=== PATIENT | female | born 1960 | race Caucasian/White ===

== ENCOUNTER 2017-10-09 04:18 | Inpatient (IN) | payer OTHER ==
[2017-10-09] MEDS: ALBUTEROL/IPRATROPIUM (NEB) 3 ML AMP HHN ×3 (05:00→14:24)
[2017-10-09] MEDS: SOD CHLORIDE 0.9% 1,000 ML IV (05:50)
[2017-10-09] MEDS: PANTOPRAZOLE 40 MG INJ IV (05:50)
[2017-10-09] MEDS: AZITHROMYCIN 500 MG in SOD CHLORIDE 0.9% 250 ML IVPB (07:59)
[2017-10-09 08:13] LABS: ADD MAN DIFF? NO
[2017-10-09 08:17] LABS: BASOPHIL # 0.1 10^3/ul (0.0-0.1); BASOPHILS % 0.2 % (0.0-2.0); EOSINOPHILS # 0.3 10^3/ul (0.0-0.5); EOSINOPHILS % 1.4 % (0.0-7.0); HEMATOCRIT 24.6 % (37.0-47.0); HEMOGLOBIN 8.2 g/dl (12.0-16.0); LYMPHOCYTES # 1.1 10^3/ul (0.8-2.9); LYMPHOCYTES % 4.9 % (15.0-51.0); MEAN CORPUSCULAR HEMOGLOBIN 28.5 pg (29.0-33.0); MEAN CORPUSCULAR HGB CONC 33.3 g/dl (32.0-37.0); MEAN CORPUSCULAR VOLUME 85.4 fl (82.0-101.0); MEAN PLATELET VOLUME 9.5 fl (7.4-10.4); MONOCYTE # 0.8 10^3/ul (0.3-0.9); MONOCYTES % 3.6 % (0.0-11.0); NEUTROPHIL # 19.8 10^3/ul (1.6-7.5); NEUTROPHILS % 87.4 % (39.0-77.0); NUCLEATED RED BLOOD CELLS% 0.1 /100WBC (0.0-0.0); PLATELET COUNT 511 10^3/UL (140-415); RED BLOOD COUNT 2.88 10^6/ul (4.20-5.40); RED CELL DISTRIBUTION WIDTH 14.9 % (11.5-14.5)
[2017-10-09 08:17] LABS: WHITE BLOOD COUNT 22.6 10^3/ul (4.8-10.8)
[2017-10-09 08:39] LABS: ALANINE AMINOTRANSFERASE 56 IU/L (13-69); ALBUMIN 2.6 g/dl (3.3-4.9); ALBUMIN/GLOBULIN RATIO 0.66; ALKALINE PHOSPHATASE 288 IU/L (42-121); ANION GAP 14 (8-16); ASPARTATE AMINO TRANSFERASE 71 IU/L (15-46); BLOOD UREA NITROGEN 11 mg/dl (7-20); CALCIUM 7.9 mg/dl (8.4-10.2); CARBON DIOXIDE 24 mmol/L (21-31); CHLORIDE 104 mmol/L (97-110); CREATININE 0.52 mg/dl (0.44-1.00); GLUCOSE 104 mg/dl (70-220); POTASSIUM 3.6 mmol/L (3.5-5.1); SODIUM 138 mmol/L (135-144); TOTAL PROTEIN 6.5 g/dl (6.1-8.1)
[2017-10-09] MEDS ORDERED: LORAZEPAM 0.5 MG TAB PO (09:00)
[2017-10-09] MEDS: ACETAMINOPHEN 325 MG TAB PO ×3 (09:08→20:05)
[2017-10-09] MEDS: ONDANSETRON 4 MG INJ IV (09:08)
[2017-10-09] MEDS: SOD FERRIC GLUC COMPLX 125 MG in SOD CHLORIDE 0.9% 100 ML IVPB (12:42)
[2017-10-09] MEDS: FUROSEMIDE 40 MG INJ IV (18:57)
[2017-10-09] MEDS: LEVALBUTEROL (NEB) 1.25 MG/0.5 ML AMP HHN (19:39)
[2017-10-09] MEDS: IBUPROFEN 600 MG TAB PO (23:18)
[2017-10-10] MEDS: LEVALBUTEROL (NEB) 1.25 MG/0.5 ML AMP HHN ×4 (02:27→19:55)
[2017-10-10] MEDS: SOD CHLORIDE 0.9% 1,000 ML IV ×2 (05:00→23:00)
[2017-10-10] MEDS: PANTOPRAZOLE 40 MG INJ IV (05:26)
[2017-10-10] MEDS: CEFTRIAXONE 1 GM/50 ML (PMX) 50 ML IVPB (07:54)
[2017-10-10] MEDS: IBUPROFEN 600 MG TAB PO (07:54)
[2017-10-10] MEDS: AZITHROMYCIN 500 MG in SOD CHLORIDE 0.9% 250 ML IVPB (07:55)
[2017-10-10 08:58] LABS: ADD MAN DIFF? NO
[2017-10-10 09:05] LABS: ABNORMAL IP MESSAGE 1; BASOPHIL # 0.1 10^3/ul (0.0-0.1); BASOPHILS % 0.2 % (0.0-2.0); EOSINOPHILS # 0.3 10^3/ul (0.0-0.5); EOSINOPHILS % 1.1 % (0.0-7.0); HEMATOCRIT 23.2 % (37.0-47.0); HEMOGLOBIN 8.1 g/dl (12.0-16.0); LYMPHOCYTES % 3.9 % (15.0-51.0); MEAN CORPUSCULAR HEMOGLOBIN 28.8 pg (29.0-33.0); MEAN CORPUSCULAR HGB CONC 34.9 g/dl (32.0-37.0); MEAN CORPUSCULAR VOLUME 82.6 fl (82.0-101.0); MEAN PLATELET VOLUME 9.6 fl (7.4-10.4); MONOCYTE # 0.7 10^3/ul (0.3-0.9); MONOCYTES % 2.7 % (0.0-11.0); NEUTROPHIL # 22.8 10^3/ul (1.6-7.5); PLATELET COUNT 506 10^3/UL (140-415); RED BLOOD COUNT 2.81 10^6/ul (4.20-5.40); RED CELL DISTRIBUTION WIDTH 14.6 % (11.5-14.5)
[2017-10-10 09:05] LABS: WHITE BLOOD COUNT 25.3 10^3/ul (4.8-10.8)
[2017-10-10 09:07] LABS: POSITIVE DIFF @See below
[2017-10-10 09:29] LABS: ALANINE AMINOTRANSFERASE 45 IU/L (13-69); ALBUMIN 2.6 g/dl (3.3-4.9); ALKALINE PHOSPHATASE 256 IU/L (42-121); ANION GAP 17 (8-16); ASPARTATE AMINO TRANSFERASE 63 IU/L (15-46); BILIRUBIN,INDIRECT 0.1 mg/dl (0-1.1); BILIRUBIN,TOTAL 0.1 mg/dl (0.2-1.3); BLOOD UREA NITROGEN 8 mg/dl (7-20); CARBON DIOXIDE 26 mmol/L (21-31); CHLORIDE 101 mmol/L (97-110); CREATININE 0.57 mg/dl (0.44-1.00); GLUCOSE 96 mg/dl (70-220); SODIUM 141 mmol/L (135-144); TOTAL PROTEIN 6.3 g/dl (6.1-8.1)
[2017-10-10 09:42] LABS: LACTIC ACID 1.2 mmol/L (0.5-2.0)
[2017-10-10 09:47] LABS: HEMOGLOBIN A1C 6.2 % (0-5.9)
[2017-10-10 10:08] LABS: POTASSIUM 2.9 mmol/L (3.5-5.1)
[2017-10-10] MEDS: POTASSIUM CHLORIDE 20 MEQ POWDER FOR ORAL SOLN PO (11:18)
[2017-10-10] MEDS: SOD FERRIC GLUC COMPLX 125 MG in SOD CHLORIDE 0.9% 100 ML IVPB (12:51)
[2017-10-10 14:55] LABS: RHEUMATOID FACTOR NEGATIVE (NEGATIVE)
[2017-10-10 15:33] LABS: ERYTHROCYTE SEDIMENTATION RATE 76 mm/Hr (0-30)
[2017-10-10] MEDS: COLCHICINE 0.6 MG TAB PO ×2 (15:38→20:56)
[2017-10-10] MEDS: NAPROXEN 500 MG TAB PO ×2 (15:39→20:56)
[2017-10-10] MEDS: ACETAMINOPHEN 325 MG TAB PO (16:18)
[2017-10-10 17:49] LABS: INR 1.21; PROTIME 15.5 Sec (11.9-14.9); PT RATIO 1.2
[2017-10-10 18:08] LABS: TROPONIN-I < 0.012 ng/ml (0.00-0.12)
[2017-10-10] MEDS: CEFEPIME 1GM/50 ML (PMX) 50 ML IVPB (20:56)
[2017-10-10] MEDS: SOD CHLORIDE 0.9% 250 ML IV (22:11)
[2017-10-11] MEDS: SOD CHLORIDE 0.9% 250 ML IV (00:39)
[2017-10-11 01:22] LABS: TROPONIN-I < 0.012 ng/ml (0.00-0.12)
[2017-10-11] MEDS: LEVALBUTEROL (NEB) 1.25 MG/0.5 ML AMP HHN ×4 (02:00→20:17)
[2017-10-11] MEDS: SOD CHLORIDE 0.9% 1,000 ML IV (04:46)
[2017-10-11 04:52] LABS: ADD MAN DIFF? NO
[2017-10-11 05:12] LABS: BASOPHIL # 0.1 10^3/ul (0.0-0.1); BASOPHILS % 0.2 % (0.0-2.0); EOSINOPHILS # 0.9 10^3/ul (0.0-0.5); HEMOGLOBIN 7.8 g/dl (12.0-16.0); LYMPHOCYTES # 1.2 10^3/ul (0.8-2.9); LYMPHOCYTES % 5.7 % (15.0-51.0); MEAN CORPUSCULAR HEMOGLOBIN 28.4 pg (29.0-33.0); MEAN CORPUSCULAR HGB CONC 33.9 g/dl (32.0-37.0); MEAN CORPUSCULAR VOLUME 83.6 fl (82.0-101.0); MONOCYTE # 0.4 10^3/ul (0.3-0.9); MONOCYTES % 1.9 % (0.0-11.0); NEUTROPHIL # 18.6 10^3/ul (1.6-7.5); NEUTROPHILS % 86.2 % (39.0-77.0); NUCLEATED RED BLOOD CELLS% 0.1 /100WBC (0.0-0.0); PLATELET COUNT 464 10^3/UL (140-415); RED BLOOD COUNT 2.75 10^6/ul (4.20-5.40); RED CELL DISTRIBUTION WIDTH 15.1 % (11.5-14.5)
[2017-10-11 05:12] LABS: WHITE BLOOD COUNT 21.6 10^3/ul (4.8-10.8)
[2017-10-11] MEDS: PANTOPRAZOLE 40 MG INJ IV (05:35)
[2017-10-11 05:58] LABS: TROPONIN-I < 0.012 ng/ml (0.00-0.12)
[2017-10-11 07:31] LABS: ANION GAP 12 (8-16); BLOOD UREA NITROGEN 12 mg/dl (7-20); CARBON DIOXIDE 25 mmol/L (21-31); CHLORIDE 107 mmol/L (97-110); CREATININE 0.57 mg/dl (0.44-1.00); GLUCOSE 103 mg/dl (70-220); POTASSIUM 3.1 mmol/L (3.5-5.1); SODIUM 141 mmol/L (135-144)
[2017-10-11 08:17] LABS: INR 1.29; PROTIME 16.3 Sec (11.9-14.9); PT RATIO 1.3
[2017-10-11 08:19] LABS: PARTIAL THROMBOPLASTIN TIME 45.3 Sec (25.0-35.0)
[2017-10-11] MEDS: NAPROXEN 500 MG TAB PO ×2 (08:23→21:07)
[2017-10-11] MEDS: CEFEPIME 1GM/50 ML (PMX) 50 ML IVPB ×2 (08:23→21:07)
[2017-10-11] MEDS: COLCHICINE 0.6 MG TAB PO ×2 (08:23→21:00)
[2017-10-11 09:03] LABS: MAGNESIUM 2.1 mg/dl (1.7-2.5)
[2017-10-11] MEDS: AZITHROMYCIN 500 MG in SOD CHLORIDE 0.9% 250 ML IVPB (09:49)
[2017-10-11] MEDS: LIDOCAINE 1% (MPF) 5 ML VIAL SC (11:09)
[2017-10-11] MEDS: SOD FERRIC GLUC COMPLX 125 MG in SOD CHLORIDE 0.9% 100 ML IVPB (12:02)
[2017-10-11] MEDS: POTASSIUM CHLORIDE 20 MEQ POWDER FOR ORAL SOLN PO (12:03)
[2017-10-11 14:32] LABS: TROPONIN-I < 0.012 ng/ml (0.00-0.12)
[2017-10-11] MEDS: POTASSIUM CHLORIDE (SR) 20 MEQ TAB PO (16:46)
[2017-10-11 17:07] LABS: IMMEDIATE SPIN CROSSMATCH 1 5
[2017-10-11 17:18] LABS: COMPLEMENT C3 151 mg/dl (88-165); COMPLEMENT C4 18 mg/dl (14-44)
[2017-10-11] MEDS: IBUPROFEN 600 MG TAB PO ×2 (17:42→21:07)
[2017-10-11] MEDS: MAGNESIUM CHLORIDE (SR) 64 MG TAB PO (17:42)
[2017-10-12] MEDS: LEVALBUTEROL (NEB) 1.25 MG/0.5 ML AMP HHN ×4 (02:28→20:54)
[2017-10-12] MEDS: PANTOPRAZOLE 40 MG INJ IV (05:12)
[2017-10-12] MEDS: SOD CHLORIDE 0.9% 1,000 ML IV (05:12)
[2017-10-12 08:00] LABS: AADO2 Arterial 136.4 mmHg (7.0-24.0); Allen Test ACCEPTAB; Arterial Base Excess -3.2 mmol/L (-3.0-3); Arterial COHb 0.3 % (0.0-3.0); Arterial Fraction of Oxyhgb 90.5 % (93.0-99.0); Arterial HCO3 19.2 mmol/L (22.0-26.0); Arterial MetHb 0.3 % (0.0-1.5); Arterial Total Hemglobin 10.8 g/dl (12.0-18.0); Arterial pCO2 26.5 mmhg (35-45); MODE NASAL CANNULA; Site Right Radial
[2017-10-12 08:34] LABS: ADD MAN DIFF? NO
[2017-10-12 08:40] LABS: WHITE BLOOD COUNT 18.4 10^3/ul (4.8-10.8)
[2017-10-12 08:40] LABS: BASOPHIL # 0.1 10^3/ul (0.0-0.1); BASOPHILS % 0.4 % (0.0-2.0); EOSINOPHILS # 0.9 10^3/ul (0.0-0.5); HEMATOCRIT 27.3 % (37.0-47.0); HEMOGLOBIN 9.5 g/dl (12.0-16.0); LYMPHOCYTES # 1.3 10^3/ul (0.8-2.9); LYMPHOCYTES % 7.1 % (15.0-51.0); MEAN CORPUSCULAR HEMOGLOBIN 28.8 pg (29.0-33.0); MEAN CORPUSCULAR HGB CONC 34.8 g/dl (32.0-37.0); MEAN CORPUSCULAR VOLUME 82.7 fl (82.0-101.0); MEAN PLATELET VOLUME 9.7 fl (7.4-10.4); MONOCYTE # 0.4 10^3/ul (0.3-0.9); MONOCYTES % 2.4 % (0.0-11.0); NEUTROPHIL # 14.9 10^3/ul (1.6-7.5); NEUTROPHILS % 81.1 % (39.0-77.0); PLATELET COUNT 495 10^3/UL (140-415); RED CELL DISTRIBUTION WIDTH 15.1 % (11.5-14.5)
[2017-10-12] MEDS: NAPROXEN 500 MG TAB PO ×2 (08:51→21:45)
[2017-10-12] MEDS: COLCHICINE 0.6 MG TAB PO ×2 (08:52→21:45)
[2017-10-12] MEDS: AZITHROMYCIN 500 MG in SOD CHLORIDE 0.9% 250 ML IVPB (08:55)
[2017-10-12] MEDS: CEFEPIME 1GM/50 ML (PMX) 50 ML IVPB ×2 (08:55→21:46)
[2017-10-12 08:56] LABS: ANION GAP 14 (8-16); BLOOD UREA NITROGEN 9 mg/dl (7-20); CALCIUM 8.5 mg/dl (8.4-10.2); CARBON DIOXIDE 25 mmol/L (21-31); CHLORIDE 108 mmol/L (97-110); GLUCOSE 95 mg/dl (70-220); POTASSIUM 3.7 mmol/L (3.5-5.1); SODIUM 143 mmol/L (135-144)
[2017-10-12] MEDS: POTASSIUM CHLORIDE (SR) 20 MEQ TAB PO (09:00)
[2017-10-12 09:17] LABS: INR 1.37; PROTIME 17.1 Sec (11.9-14.9); PT RATIO 1.3
[2017-10-12 09:18] LABS: PARTIAL THROMBOPLASTIN TIME 46.3 Sec (25.0-35.0)
[2017-10-12] MEDS: OLOPATADINE 0.1% 5 ML OPH BOTH EYES (13:30)
[2017-10-12] MEDS: IBUPROFEN 600 MG TAB PO (17:00)
[2017-10-13] MEDS: LEVALBUTEROL (NEB) 1.25 MG/0.5 ML AMP HHN ×4 (01:18→19:30)
[2017-10-13] MEDS: PANTOPRAZOLE 40 MG INJ IV (05:38)
[2017-10-13] MEDS: SOD CHLORIDE 0.9% 1,000 ML IV (05:39)
[2017-10-13 06:24] LABS: ADD MAN DIFF? NO
[2017-10-13 06:34] LABS: WHITE BLOOD COUNT 17.9 10^3/ul (4.8-10.8)
[2017-10-13 06:34] LABS: BASOPHIL # 0.1 10^3/ul (0.0-0.1); BASOPHILS % 0.3 % (0.0-2.0); EOSINOPHILS # 1.1 10^3/ul (0.0-0.5); EOSINOPHILS % 6.2 % (0.0-7.0); HEMATOCRIT 28.6 % (37.0-47.0); HEMOGLOBIN 9.8 g/dl (12.0-16.0); LYMPHOCYTES # 1.8 10^3/ul (0.8-2.9); LYMPHOCYTES % 10.3 % (15.0-51.0); MEAN CORPUSCULAR HEMOGLOBIN 28.4 pg (29.0-33.0); MEAN CORPUSCULAR HGB CONC 34.3 g/dl (32.0-37.0); MEAN CORPUSCULAR VOLUME 82.9 fl (82.0-101.0); MEAN PLATELET VOLUME 9.7 fl (7.4-10.4); MONOCYTE # 0.7 10^3/ul (0.3-0.9); MONOCYTES % 3.9 % (0.0-11.0); NEUTROPHIL # 13.5 10^3/ul (1.6-7.5); NEUTROPHILS % 75.3 % (39.0-77.0); PLATELET COUNT 481 10^3/UL (140-415); RED BLOOD COUNT 3.45 10^6/ul (4.20-5.40); RED CELL DISTRIBUTION WIDTH 15.3 % (11.5-14.5)
[2017-10-13 06:58] LABS: ALANINE AMINOTRANSFERASE 64 IU/L (13-69); ALBUMIN 2.6 g/dl (3.3-4.9); ALBUMIN/GLOBULIN RATIO 0.72; ALKALINE PHOSPHATASE 280 IU/L (42-121); ANION GAP 12 (8-16); ASPARTATE AMINO TRANSFERASE 147 IU/L (15-46); BILIRUBIN,INDIRECT 0.2 mg/dl (0-1.1); BILIRUBIN,TOTAL 0.2 mg/dl (0.2-1.3); BLOOD UREA NITROGEN 10 mg/dl (7-20); CALCIUM 8.2 mg/dl (8.4-10.2); CARBON DIOXIDE 28 mmol/L (21-31); CHLORIDE 104 mmol/L (97-110); CREATININE 0.51 mg/dl (0.44-1.00); GLUCOSE 93 mg/dl (70-220); POTASSIUM 3.4 mmol/L (3.5-5.1); SODIUM 141 mmol/L (135-144); TOTAL PROTEIN 6.2 g/dl (6.1-8.1)
[2017-10-13] MEDS ORDERED: HEPARIN 1000 UNITS/ML 10 ML INJ (07:40)
[2017-10-13] MEDS ORDERED: NEOSTIGMINE 3 MG/3 ML SYRINGE (08:04)
[2017-10-13] MEDS ORDERED: GLYCOPYRROLATE 0.4 MG INJ ×2 (08:04→09:05)
[2017-10-13] MEDS ORDERED: SUCCINYLCHOLINE CHLORIDE 100 MG/5 ML SYG IV (08:04)
[2017-10-13] MEDS ORDERED: ROCURONIUM 50 MG INJ (08:04)
[2017-10-13] MEDS ORDERED: PROPOFOL 20 ML (08:04)
[2017-10-13] MEDS: NAPROXEN 500 MG TAB PO ×2 (08:16→20:24)
[2017-10-13] MEDS: POTASSIUM CHLORIDE (SR) 20 MEQ TAB PO (08:16)
[2017-10-13] MEDS: COLCHICINE 0.6 MG TAB PO ×2 (08:16→20:24)
[2017-10-13] MEDS: OLOPATADINE 0.1% 5 ML OPH BOTH EYES (08:16)
[2017-10-13] MEDS ORDERED: CEFAZOLIN 1 GM INJ (09:00)
[2017-10-13] MEDS ORDERED: METOCLOPRAMIDE 10 MG INJ (09:09)
[2017-10-13] MEDS ORDERED: ONDANSETRON 4 MG INJ (09:09)
[2017-10-13] MEDS ORDERED: FENTAnyl 50 MCG/ML VIAL (09:32)
[2017-10-13] MEDS ORDERED: morphine 4 MG/ML VIAL ×2 (09:49→18:52)
[2017-10-13] MEDS: morphine 4 MG/ML VIAL IV ×2 (09:54→18:58)
[2017-10-13] MEDS: CEFEPIME 1GM/50 ML (PMX) 50 ML IVPB ×2 (09:54→20:25)
[2017-10-13] MEDS: AZITHROMYCIN 500 MG in SOD CHLORIDE 0.9% 250 ML IVPB (09:54)
[2017-10-13] MEDS ORDERED: HYDROmorphONE 0.5 MG/0.5 ML SYG IV (10:00)
[2017-10-13] MEDS ORDERED: ONDANSETRON 4 MG INJ IV (10:00)
[2017-10-13] MEDS ORDERED: MEPERIDINE 25 MG INJ IV (10:00)
[2017-10-13] MEDS ORDERED: HYDROmorphONE 1 MG/ML SYG IV (10:00)
[2017-10-13] MEDS ORDERED: hydrALAzine 20 MG INJ IV (10:00)
[2017-10-13] MEDS ORDERED: EPHEDrine SULFATE 50 MG/5 ML SYG IV (10:00)
[2017-10-13] MEDS ORDERED: METOCLOPRAMIDE 10 MG INJ IV (10:00)
[2017-10-13] MEDS ORDERED: DIPHENHYDRAMINE 50 MG INJ IV (10:00)
[2017-10-13] MEDS ORDERED: FENTAnyl 50 MCG/ML VIAL IV ×3 (10:00)
[2017-10-13] MEDS ORDERED: LABETALOL HCL 20MG INJ IV (10:00)
[2017-10-13] MEDS: HYDROmorphONE 0.5 MG/0.5 ML SYG IV (10:55)
[2017-10-13] MEDS ORDERED: POTASSIUM CHLORIDE 50 ML IVPB (17:00)
[2017-10-13] MEDS: POTASSIUM CHLORIDE (SR) 10 MEQ TAB PO (17:22)
[2017-10-13 17:51] LABS: ANA SCREEN POSITIVE (NEGATIVE)
[2017-10-13 18:37] LABS: ANA PATTERN CENTROMERE; NIL 0.05 IU/mL; QUANTIFERON(R)-TB GOLD NEGATIVE (NEGATIVE); TB-NIL 0.01 IU/mL
[2017-10-14] MEDS: LEVALBUTEROL (NEB) 1.25 MG/0.5 ML AMP HHN ×5 (02:00→23:07)
[2017-10-14] MEDS: SOD CHLORIDE 0.9% 1,000 ML IV (05:00)
[2017-10-14 05:24] LABS: WHITE BLOOD COUNT 28.2 10^3/ul (4.8-10.8)
[2017-10-14 05:24] LABS: ABNORMAL IP MESSAGE 1; HEMATOCRIT 30.1 % (37.0-47.0); HEMOGLOBIN 10.2 g/dl (12.0-16.0); MEAN CORPUSCULAR HEMOGLOBIN 28.4 pg (29.0-33.0); MEAN CORPUSCULAR HGB CONC 33.9 g/dl (32.0-37.0); MEAN CORPUSCULAR VOLUME 83.8 fl (82.0-101.0); MEAN PLATELET VOLUME 10.5 fl (7.4-10.4); PLATELET COUNT 476 10^3/UL (140-415); RED BLOOD COUNT 3.59 10^6/ul (4.20-5.40); RED CELL DISTRIBUTION WIDTH 15.4 % (11.5-14.5)
[2017-10-14] MEDS: PANTOPRAZOLE 40 MG INJ IV (06:15)
[2017-10-14] MEDS: morphine 4 MG/ML VIAL IV (06:16)
[2017-10-14 06:25] LABS: ALANINE AMINOTRANSFERASE 65 IU/L (13-69); ALBUMIN 2.4 g/dl (3.3-4.9); ALBUMIN/GLOBULIN RATIO 0.61; ALKALINE PHOSPHATASE 213 IU/L (42-121); ANION GAP 17 (8-16); ASPARTATE AMINO TRANSFERASE 136 IU/L (15-46); BILIRUBIN,INDIRECT 0.3 mg/dl (0-1.1); BILIRUBIN,TOTAL 0.3 mg/dl (0.2-1.3); BLOOD UREA NITROGEN 13 mg/dl (7-20); CALCIUM 8.2 mg/dl (8.4-10.2); CARBON DIOXIDE 22 mmol/L (21-31); CHLORIDE 104 mmol/L (97-110); CREATININE 0.46 mg/dl (0.44-1.00); GLUCOSE 89 mg/dl (70-220); POTASSIUM 4.1 mmol/L (3.5-5.1); SODIUM 139 mmol/L (135-144); TOTAL PROTEIN 6.3 g/dl (6.1-8.1)
[2017-10-14 06:50] LABS: ADD MAN DIFF? YES; POSITIVE DIFF @See below
[2017-10-14] MEDS: AZITHROMYCIN 500 MG in SOD CHLORIDE 0.9% 250 ML IVPB (08:29)
[2017-10-14] MEDS: NAPROXEN 500 MG TAB PO ×2 (08:29→20:23)
[2017-10-14] MEDS: POTASSIUM CHLORIDE (SR) 20 MEQ TAB PO (08:29)
[2017-10-14] MEDS: COLCHICINE 0.6 MG TAB PO (08:29)
[2017-10-14] MEDS: CEFEPIME 1GM/50 ML (PMX) 50 ML IVPB ×2 (08:30→20:23)
[2017-10-14] MEDS: OLOPATADINE 0.1% 5 ML OPH BOTH EYES (08:39)
[2017-10-14 09:02] LABS: BAND NEUTROPHILS #M 6.7 10^3/ul (0.0-0.6); BAND NEUTROPHILS % (M) 24 % (0-4); EOSINOPHILS % (M) 3 % (0-7); LYMPHOCYTES #M 0.5 10^3/ul (0.8-2.9); LYMPHOCYTES % (M) 2 % (15-51); MONOCYTE #M 0.5 10^3/ul (0.3-0.9); MONOCYTES % (M) 2 % (0-11); PLATELET ESTIMATE NORMAL; POLYCHROMASIA 3+ (0-0); SEG NEUT #M 21.3 10^3/ul (1.7-7.5); SEGMENTED NEUTROPHILS (M) % 69 % (39-77); SMUDGE%M 6 % (0-0)
[2017-10-14] MEDS: morphine LIQ (10 MG/5 ML) CUP PO (17:39)
[2017-10-15] MEDS: PANTOPRAZOLE 40 MG INJ IV (05:07)
[2017-10-15 05:35] LABS: ADD MAN DIFF? NO
[2017-10-15 05:58] LABS: WHITE BLOOD COUNT 25.9 10^3/ul (4.8-10.8)
[2017-10-15 05:58] LABS: ABNORMAL IP MESSAGE 1; BASOPHIL # 0.1 10^3/ul (0.0-0.1); BASOPHILS % 0.4 % (0.0-2.0); EOSINOPHILS # 1.3 10^3/ul (0.0-0.5); EOSINOPHILS % 5.1 % (0.0-7.0); HEMATOCRIT 30.8 % (37.0-47.0); HEMOGLOBIN 10.1 g/dl (12.0-16.0); LYMPHOCYTES # 1.7 10^3/ul (0.8-2.9); LYMPHOCYTES % 6.6 % (15.0-51.0); MEAN CORPUSCULAR HGB CONC 32.8 g/dl (32.0-37.0); MEAN CORPUSCULAR VOLUME 85.3 fl (82.0-101.0); MEAN PLATELET VOLUME 10.2 fl (7.4-10.4); MONOCYTE # 0.6 10^3/ul (0.3-0.9); MONOCYTES % 2.2 % (0.0-11.0); NEUTROPHIL # 21.5 10^3/ul (1.6-7.5); PLATELET COUNT 520 10^3/UL (140-415); RED BLOOD COUNT 3.61 10^6/ul (4.20-5.40); RED CELL DISTRIBUTION WIDTH 15.7 % (11.5-14.5)
[2017-10-15 06:05] LABS: POSITIVE DIFF @See below
[2017-10-15 06:29] LABS: ALANINE AMINOTRANSFERASE 45 IU/L (13-69); ALBUMIN 2.5 g/dl (3.3-4.9); ALBUMIN/GLOBULIN RATIO 0.67; ALKALINE PHOSPHATASE 262 IU/L (42-121); ANION GAP 13 (8-16); ASPARTATE AMINO TRANSFERASE 67 IU/L (15-46); BILIRUBIN,INDIRECT 0.2 mg/dl (0-1.1); BILIRUBIN,TOTAL 0.2 mg/dl (0.2-1.3); BLOOD UREA NITROGEN 13 mg/dl (7-20); CALCIUM 8.6 mg/dl (8.4-10.2); CARBON DIOXIDE 26 mmol/L (21-31); CHLORIDE 103 mmol/L (97-110); GLUCOSE 84 mg/dl (70-220); POTASSIUM 3.8 mmol/L (3.5-5.1); SODIUM 138 mmol/L (135-144); TOTAL PROTEIN 6.2 g/dl (6.1-8.1)
[2017-10-15] MEDS: LEVALBUTEROL (NEB) 1.25 MG/0.5 ML AMP HHN ×3 (08:00→20:00)
[2017-10-15] MEDS: SOD CHLORIDE 0.9% 1,000 ML IV (09:00)
[2017-10-15] MEDS: POTASSIUM CHLORIDE (SR) 20 MEQ TAB PO (09:08)
[2017-10-15] MEDS: OLOPATADINE 0.1% 5 ML OPH BOTH EYES (09:08)
[2017-10-15] MEDS: NAPROXEN 500 MG TAB PO ×2 (09:08→21:00)
[2017-10-15] MEDS: CEFEPIME 1GM/50 ML (PMX) 50 ML IVPB ×2 (11:15→22:00)
[2017-10-15 18:02] LABS: PROCALCITONIN 1.66 ng/mL (<0.10)
[2017-10-15] MEDS: IBUPROFEN 600 MG TAB PO (22:01)
[2017-10-15] MEDS: FUROSEMIDE 20 MG INJ IV (23:24)
[2017-10-16] MEDS: GUAIFENESIN/DM 5ML CUP PO (01:43)
[2017-10-16] MEDS: LEVALBUTEROL (NEB) 1.25 MG/0.5 ML AMP HHN ×5 (01:56→20:15)
[2017-10-16] MEDS: SOD CHLORIDE 0.9% 1,000 ML IV (05:00)
[2017-10-16 06:30] LABS: WHITE BLOOD COUNT 21.3 10^3/ul (4.8-10.8)
[2017-10-16 06:30] LABS: HEMATOCRIT 30.4 % (37.0-47.0); HEMOGLOBIN 10.5 g/dl (12.0-16.0); MEAN CORPUSCULAR HEMOGLOBIN 28.8 pg (29.0-33.0); MEAN CORPUSCULAR HGB CONC 34.5 g/dl (32.0-37.0); MEAN CORPUSCULAR VOLUME 83.5 fl (82.0-101.0); MEAN PLATELET VOLUME 9.9 fl (7.4-10.4); PLATELET COUNT 537 10^3/UL (140-415); RED BLOOD COUNT 3.64 10^6/ul (4.20-5.40); RED CELL DISTRIBUTION WIDTH 15.9 % (11.5-14.5)
[2017-10-16] MEDS: PANTOPRAZOLE 40 MG INJ IV (06:32)
[2017-10-16 06:46] LABS: ADD MAN DIFF? YES; POSITIVE DIFF @See below
[2017-10-16 07:13] LABS: ALANINE AMINOTRANSFERASE 40 IU/L (13-69); ALBUMIN 2.7 g/dl (3.3-4.9); ALBUMIN/GLOBULIN RATIO 0.61; ALKALINE PHOSPHATASE 261 IU/L (42-121); ANION GAP 14 (8-16); ASPARTATE AMINO TRANSFERASE 59 IU/L (15-46); BILIRUBIN,INDIRECT 0.2 mg/dl (0-1.1); BILIRUBIN,TOTAL 0.2 mg/dl (0.2-1.3); BLOOD UREA NITROGEN 11 mg/dl (7-20); CALCIUM 8.7 mg/dl (8.4-10.2); CARBON DIOXIDE 28 mmol/L (21-31); CHLORIDE 99 mmol/L (97-110); CREATININE 0.49 mg/dl (0.44-1.00); GLUCOSE 97 mg/dl (70-220); POTASSIUM 3.8 mmol/L (3.5-5.1); SODIUM 137 mmol/L (135-144); TOTAL PROTEIN 7.1 g/dl (6.1-8.1)
[2017-10-16] MEDS: CEFEPIME 1GM/50 ML (PMX) 50 ML IVPB ×2 (09:30→21:33)
[2017-10-16] MEDS: POTASSIUM CHLORIDE (SR) 20 MEQ TAB PO (09:30)
[2017-10-16] MEDS: morphine LIQ (10 MG/5 ML) CUP PO (09:38)
[2017-10-16] MEDS: OLOPATADINE 0.1% 5 ML OPH BOTH EYES (09:42)
[2017-10-16] MEDS: NAPROXEN 500 MG TAB PO ×2 (09:42→21:00)
[2017-10-16 11:05] LABS: BAND NEUTROPHILS #M 2.9 10^3/ul (0.0-0.6); BAND NEUTROPHILS % (M) 14 % (0-4); EOSINOPHILS % (M) 2 % (0-7); GIANT THROMBO% (M) 1 % (0-0); HYPOCHROMASIA 1+ (0-0); LYMPHOCYTES #M 1.7 10^3/ul (0.8-2.9); LYMPHOCYTES % (M) 8 % (15-51); METAMYELOCYTES #M 0.2 10^3/ul (0.0-0.0); METAMYELOCYTES %M 1 % (0-0); PLATELET ESTIMATE INCREASED; POLYCHROMASIA 3+ (0-0); PROMYELOCYTES #M 0.2 10^3/ul (0-0); PROMYELOCYTES % (M) 1 % (0-0); SEG NEUT #M 16.4 10^3/ul (1.7-7.5); SEGMENTED NEUTROPHILS (M) % 74 % (39-77); SMUDGE%M 2 % (0-0)
[2017-10-16] MEDS ORDERED: METOPROLOL 5 MG INJ IV (14:00)
[2017-10-16] MEDS: ACETAMINOPHEN 325 MG TAB PO (21:42)
[2017-10-17] MEDS: NAPROXEN 500 MG TAB PO ×3 (03:21→20:55)
[2017-10-17] MEDS: SOD CHLORIDE 0.9% 1,000 ML IV ×2 (05:00→16:43)
[2017-10-17] MEDS: PANTOPRAZOLE 40 MG INJ IV (06:30)
[2017-10-17] MEDS: POTASSIUM CHLORIDE (SR) 20 MEQ TAB PO (08:49)
[2017-10-17] MEDS: CEFEPIME 1GM/50 ML (PMX) 50 ML IVPB ×2 (08:50→20:55)
[2017-10-17] MEDS: OLOPATADINE 0.1% 5 ML OPH BOTH EYES (08:55)
[2017-10-17] MEDS: LEVALBUTEROL (NEB) 1.25 MG/0.5 ML AMP HHN ×3 (08:55→19:30)
[2017-10-17] MEDS: IBUPROFEN 600 MG TAB PO (16:43)
[2017-10-17] MEDS: DOXYCYCLINE 100 MG in SOD CHLORIDE 0.9% 250 ML IVPB (21:59)
[2017-10-18] MEDS: LEVALBUTEROL (NEB) 1.25 MG/0.5 ML AMP HHN ×4 (01:29→19:52)
[2017-10-18] MEDS: SOD CHLORIDE 0.9% 1,000 ML IV (05:00)
[2017-10-18] MEDS: PANTOPRAZOLE 40 MG INJ IV (06:40)
[2017-10-18 07:14] LABS: ABNORMAL IP MESSAGE 1; HEMATOCRIT 27.2 % (37.0-47.0); HEMOGLOBIN 9.2 g/dl (12.0-16.0); MEAN CORPUSCULAR HEMOGLOBIN 28.7 pg (29.0-33.0); MEAN CORPUSCULAR HGB CONC 33.8 g/dl (32.0-37.0); MEAN CORPUSCULAR VOLUME 84.7 fl (82.0-101.0); PLATELET COUNT 579 10^3/UL (140-415); RED BLOOD COUNT 3.21 10^6/ul (4.20-5.40)
[2017-10-18 07:14] LABS: WHITE BLOOD COUNT 25.2 10^3/ul (4.8-10.8)
[2017-10-18 07:20] LABS: ADD MAN DIFF? YES; POSITIVE DIFF @See below
[2017-10-18] MEDS: NAPROXEN 500 MG TAB PO ×2 (07:24→22:58)
[2017-10-18 07:34] LABS: ANION GAP 12 (8-16); BLOOD UREA NITROGEN 10 mg/dl (7-20); CALCIUM 8.6 mg/dl (8.4-10.2); CARBON DIOXIDE 30 mmol/L (21-31); CHLORIDE 100 mmol/L (97-110); CREATININE 0.43 mg/dl (0.44-1.00); GLUCOSE 97 mg/dl (70-220); POTASSIUM 3.8 mmol/L (3.5-5.1); SODIUM 138 mmol/L (135-144)
[2017-10-18] MEDS: CEFEPIME 1GM/50 ML (PMX) 50 ML IVPB ×2 (08:30→22:57)
[2017-10-18] MEDS: POTASSIUM CHLORIDE (SR) 20 MEQ TAB PO (08:30)
[2017-10-18] MEDS: OLOPATADINE 0.1% 5 ML OPH BOTH EYES (08:31)
[2017-10-18] MEDS: DOXYCYCLINE 100 MG in SOD CHLORIDE 0.9% 250 ML IVPB (09:45)
[2017-10-18 10:17] LABS: BAND NEUTROPHILS #M 0.7 10^3/ul (0.0-0.6); BAND NEUTROPHILS % (M) 3 % (0-4); EOSINOPHILS % (M) 7 % (0-7); HYPOCHROMASIA 1+ (0-0); LYMPHOCYTES #M 0.2 10^3/ul (0.8-2.9); LYMPHOCYTES % (M) 1 % (15-51); METAMYELOCYTES #M 0.2 10^3/ul (0.0-0.0); METAMYELOCYTES %M 1 % (0-0); MONOCYTE #M 0.2 10^3/ul (0.3-0.9); MONOCYTES % (M) 1 % (0-11); OVALOCYTES 1+ (0-0); PLATELET ESTIMATE INCREASED; POIKILOCYTOSIS 1+ (0-0); POLYCHROMASIA 2+ (0-0); SEG NEUT #M 22.1 10^3/ul (1.7-7.5); SEGMENTED NEUTROPHILS (M) % 87 % (39-77)
[2017-10-18] MEDS ORDERED: CEPASTAT LOZENGE MT (12:00)
[2017-10-18] MEDS: IBUPROFEN 600 MG TAB PO (16:37)
[2017-10-18] MEDS: DOXYCYCLINE 100 MG in DEXTROSE 5% 250 ML IVPB (22:57)
[2017-10-19] MEDS: LEVALBUTEROL (NEB) 1.25 MG/0.5 ML AMP HHN ×4 (01:33→19:25)
[2017-10-19] MEDS: PANTOPRAZOLE 40 MG INJ IV (06:09)
[2017-10-19] MEDS: SOD CHLORIDE 0.9% 1,000 ML IV (06:09)
[2017-10-19 06:17] LABS: ADD MAN DIFF? NO
[2017-10-19 06:29] LABS: ABNORMAL IP MESSAGE 1; BASOPHIL # 0.1 10^3/ul (0.0-0.1); BASOPHILS % 0.5 % (0.0-2.0); EOSINOPHILS # 1.5 10^3/ul (0.0-0.5); EOSINOPHILS % 7.6 % (0.0-7.0); HEMATOCRIT 26.9 % (37.0-47.0); LYMPHOCYTES # 1.2 10^3/ul (0.8-2.9); LYMPHOCYTES % 6.2 % (15.0-51.0); MEAN CORPUSCULAR HEMOGLOBIN 28.6 pg (29.0-33.0); MEAN CORPUSCULAR HGB CONC 33.5 g/dl (32.0-37.0); MEAN CORPUSCULAR VOLUME 85.4 fl (82.0-101.0); MEAN PLATELET VOLUME 10.2 fl (7.4-10.4); MONOCYTE # 0.6 10^3/ul (0.3-0.9); NEUTROPHIL # 15.1 10^3/ul (1.6-7.5); NEUTROPHILS % 76.9 % (39.0-77.0); PLATELET COUNT 639 10^3/UL (140-415); RED BLOOD COUNT 3.15 10^6/ul (4.20-5.40); RED CELL DISTRIBUTION WIDTH 16.3 % (11.5-14.5)
[2017-10-19 06:29] LABS: WHITE BLOOD COUNT 19.6 10^3/ul (4.8-10.8)
[2017-10-19 06:33] LABS: POSITIVE DIFF @See below
[2017-10-19] MEDS: CEFEPIME 1GM/50 ML (PMX) 50 ML IVPB (10:09)
[2017-10-19] MEDS: POTASSIUM CHLORIDE (SR) 20 MEQ TAB PO (10:09)
[2017-10-19] MEDS: NAPROXEN 500 MG TAB PO ×2 (10:09→20:49)
[2017-10-19] MEDS: OLOPATADINE 0.1% 5 ML OPH BOTH EYES ×2 (10:10→10:11)
[2017-10-19] MEDS: DOXYCYCLINE 100 MG in DEXTROSE 5% 250 ML IVPB (10:46)
[2017-10-19] MEDS: DIGOXIN 500 MCG INJ IV (13:35)
[2017-10-19] MEDS: IBUPROFEN 600 MG TAB PO (13:39)
[2017-10-19 16:28] LABS: C-REACTIVE PROTEIN 26.3 mg/dl (0.0-0.9)
[2017-10-19 16:51] LABS: ERYTHROCYTE SEDIMENTATION RATE 101 mm/Hr (0-30)
[2017-10-20] MEDS: LEVALBUTEROL (NEB) 1.25 MG/0.5 ML AMP HHN ×4 (01:36→20:00)
[2017-10-20] MEDS: PANTOPRAZOLE 40 MG INJ IV (05:33)
[2017-10-20 07:27] LABS: ADD MAN DIFF? NO
[2017-10-20 07:41] LABS: ABNORMAL IP MESSAGE 1; BASOPHIL # 0.1 10^3/ul (0.0-0.1); BASOPHILS % 0.3 % (0.0-2.0); EOSINOPHILS # 1.5 10^3/ul (0.0-0.5); EOSINOPHILS % 7.1 % (0.0-7.0); HEMATOCRIT 26.4 % (37.0-47.0); HEMOGLOBIN 8.9 g/dl (12.0-16.0); LYMPHOCYTES # 1.2 10^3/ul (0.8-2.9); LYMPHOCYTES % 5.5 % (15.0-51.0); MEAN CORPUSCULAR HEMOGLOBIN 28.6 pg (29.0-33.0); MEAN CORPUSCULAR HGB CONC 33.7 g/dl (32.0-37.0); MEAN CORPUSCULAR VOLUME 84.9 fl (82.0-101.0); MEAN PLATELET VOLUME 10.3 fl (7.4-10.4); MONOCYTE # 0.6 10^3/ul (0.3-0.9); MONOCYTES % 2.7 % (0.0-11.0); NEUTROPHILS % 79.2 % (39.0-77.0); RED BLOOD COUNT 3.11 10^6/ul (4.20-5.40); RED CELL DISTRIBUTION WIDTH 16.9 % (11.5-14.5)
[2017-10-20 07:41] LABS: WHITE BLOOD COUNT 21.4 10^3/ul (4.8-10.8)
[2017-10-20 07:54] LABS: PLATELET COUNT 698 10^3/UL (140-415); POSITIVE DIFF @See below
[2017-10-20 08:00] LABS: ANION GAP 13 (8-16); BLOOD UREA NITROGEN 9 mg/dl (7-20); CALCIUM 9.2 mg/dl (8.4-10.2); CARBON DIOXIDE 29 mmol/L (21-31); CHLORIDE 102 mmol/L (97-110); CREATININE 0.45 mg/dl (0.44-1.00); GLUCOSE 97 mg/dl (70-220); MAGNESIUM 1.9 mg/dl (1.7-2.5); PHOSPHORUS 4.4 mg/dl (2.5-4.9); POTASSIUM 3.8 mmol/L (3.5-5.1); SODIUM 140 mmol/L (135-144)
[2017-10-20 08:28] LABS: C-REACTIVE PROTEIN 30.3 mg/dl (0.0-0.9)
[2017-10-20] MEDS: OLOPATADINE 0.1% 5 ML OPH BOTH EYES (09:00)
[2017-10-20 09:05] LABS: ERYTHROCYTE SEDIMENTATION RATE 118 mm/Hr (0-30)
[2017-10-20] MEDS: NAPROXEN 500 MG TAB PO ×2 (09:28→20:37)
[2017-10-20] MEDS: POTASSIUM CHLORIDE (SR) 20 MEQ TAB PO (09:28)
[2017-10-20 09:50] LABS: BAND NEUTROPHILS % (M) 5 % (0-4); EOSINOPHILS % (M) 8 % (0-7); GIANT THROMBO% (M) 1 % (0-0); LYMPHOCYTES % (M) 5 % (15-51); MONOCYTE #M 0.6 10^3/ul (0.3-0.9); MONOCYTES % (M) 3 % (0-11); MYELOCYTES #M 0.2 10^3/ul (0.0-0.0); MYELOCYTES % (M) 1 % (0-0); PLATELET ESTIMATE INCREASED; POLYCHROMASIA 3+ (0-0); REACTIVE LYMPHOCYTES #M 0.2 10^3/ul (0.0-0.0); REACTIVE LYMPHOCYTES% (M) 1 % (0-0); SEG NEUT #M 16.7 10^3/ul (1.7-7.5); SEGMENTED NEUTROPHILS (M) % 77 % (39-77); SMUDGE%M 2 % (0-0)
[2017-10-20] MEDS: IBUPROFEN 600 MG TAB PO (10:31)
[2017-10-20] MEDS: predniSONE 20 MG TAB PO (16:44)
[2017-10-21] MEDS: LEVALBUTEROL (NEB) 1.25 MG/0.5 ML AMP HHN ×4 (02:00→20:00)
[2017-10-21] MEDS: PANTOPRAZOLE 40 MG INJ IV (05:08)
[2017-10-21 08:47] LABS: ABNORMAL IP MESSAGE 1; HEMATOCRIT 25.3 % (37.0-47.0); HEMOGLOBIN 8.3 g/dl (12.0-16.0); MEAN CORPUSCULAR HEMOGLOBIN 27.9 pg (29.0-33.0); MEAN CORPUSCULAR HGB CONC 32.8 g/dl (32.0-37.0); MEAN CORPUSCULAR VOLUME 84.9 fl (82.0-101.0); PLATELET COUNT 726 10^3/UL (140-415); RED BLOOD COUNT 2.98 10^6/ul (4.20-5.40); RED CELL DISTRIBUTION WIDTH 16.4 % (11.5-14.5)
[2017-10-21 08:47] LABS: WHITE BLOOD COUNT 20.1 10^3/ul (4.8-10.8)
[2017-10-21] MEDS: OLOPATADINE 0.1% 5 ML OPH BOTH EYES (08:49)
[2017-10-21] MEDS: POTASSIUM CHLORIDE (SR) 20 MEQ TAB PO (08:49)
[2017-10-21] MEDS: NAPROXEN 500 MG TAB PO ×2 (08:49→20:17)
[2017-10-21 09:05] LABS: MAGNESIUM 2.2 mg/dl (1.7-2.5)
[2017-10-21 09:05] LABS: PHOSPHORUS 4.6 mg/dl (2.5-4.9)
[2017-10-21 09:10] LABS: ADD MAN DIFF? YES; POSITIVE DIFF @See below
[2017-10-21 09:12] LABS: ANION GAP 15 (8-16); BLOOD UREA NITROGEN 15 mg/dl (7-20); CALCIUM 9.3 mg/dl (8.4-10.2); CARBON DIOXIDE 28 mmol/L (21-31); CHLORIDE 103 mmol/L (97-110); CREATININE 0.43 mg/dl (0.44-1.00); GLUCOSE 86 mg/dl (70-220); POTASSIUM 4.7 mmol/L (3.5-5.1); SODIUM 141 mmol/L (135-144)
[2017-10-21 11:01] LABS: ANISOCYTOSIS 1+ (0-0); BAND NEUTROPHILS #M 3.6 10^3/ul (0.0-0.6); BAND NEUTROPHILS % (M) 18 % (0-4); BURR CELLS 1+ (0-0); EOSINOPHILS % (M) 1 % (0-7); HYPOCHROMASIA 1+ (0-0); LYMPHOCYTES #M 0.2 10^3/ul (0.8-2.9); LYMPHOCYTES % (M) 1 % (15-51); MONOCYTE #M 0.6 10^3/ul (0.3-0.9); MONOCYTES % (M) 3 % (0-11); MYELOCYTES #M 0.2 10^3/ul (0.0-0.0); MYELOCYTES % (M) 1 % (0-0); PLATELET ESTIMATE INCREASED; POIKILOCYTOSIS 1+ (0-0); POLYCHROMASIA 1+ (0-0); SEGMENTED NEUTROPHILS (M) % 76 % (39-77); SMUDGE%M 3 % (0-0)
[2017-10-21] MEDS: predniSONE 20 MG TAB PO (12:11)
[2017-10-21 13:02] LABS: SMOOTH MUSCLE AB SCREEN NEGATIVE (NEGATIVE)
[2017-10-21 13:47] LABS: ANCA SCREEN NEGATIVE (NEGATIVE); MYELOPEROXIDASE ANTIBODY <1.0 AI; PROTEINASE-3 ANTIBODY <1.0 AI
[2017-10-21] MEDS: ATENOLOL 25 MG TAB PO (17:33)
[2017-10-22] MEDS: LEVALBUTEROL (NEB) 1.25 MG/0.5 ML AMP HHN ×4 (01:49→20:00)
[2017-10-22] MEDS: PANTOPRAZOLE 40 MG INJ IV (05:27)
[2017-10-22 07:49] LABS: WHITE BLOOD COUNT 20.2 10^3/ul (4.8-10.8)
[2017-10-22 07:49] LABS: ABNORMAL IP MESSAGE 1; HEMATOCRIT 26.9 % (37.0-47.0); HEMOGLOBIN 8.7 g/dl (12.0-16.0); MEAN CORPUSCULAR HEMOGLOBIN 27.7 pg (29.0-33.0); MEAN CORPUSCULAR HGB CONC 32.3 g/dl (32.0-37.0); MEAN CORPUSCULAR VOLUME 85.7 fl (82.0-101.0); MEAN PLATELET VOLUME 10.3 fl (7.4-10.4); PLATELET COUNT 770 10^3/UL (140-415); RED BLOOD COUNT 3.14 10^6/ul (4.20-5.40); RED CELL DISTRIBUTION WIDTH 16.7 % (11.5-14.5)
[2017-10-22 07:56] LABS: POSITIVE DIFF @See below
[2017-10-22 07:57] LABS: ADD MAN DIFF? YES
[2017-10-22] MEDS: ATENOLOL 25 MG TAB PO ×2 (08:39→20:53)
[2017-10-22] MEDS: NAPROXEN 500 MG TAB PO ×2 (08:39→20:56)
[2017-10-22] MEDS: POTASSIUM CHLORIDE (SR) 20 MEQ TAB PO (08:39)
[2017-10-22] MEDS: OLOPATADINE 0.1% 5 ML OPH BOTH EYES (08:43)
[2017-10-22 09:49] LABS: BAND NEUTROPHILS #M 1.2 10^3/ul (0.0-0.6); BAND NEUTROPHILS % (M) 6 % (0-4); BASOPHIL #M 0.4 10^3/ul (0.0-0.0); BASOPHILS % (M) 2 % (0-2); EOSINOPHILS % (M) 3 % (0-7); HYPOCHROMASIA 1+ (0-0); LYMPHOCYTES #M 1.8 10^3/ul (0.8-2.9); LYMPHOCYTES % (M) 9 % (15-51); METAMYELOCYTES #M 0.6 10^3/ul (0.0-0.0); METAMYELOCYTES %M 3 % (0-0); MONOCYTE #M 0.6 10^3/ul (0.3-0.9); MONOCYTES % (M) 3 % (0-11); MYELOCYTES #M 0.4 10^3/ul (0.0-0.0); MYELOCYTES % (M) 2 % (0-0); PLATELET ESTIMATE INCREASED; POLYCHROMASIA 2+ (0-0); SEG NEUT #M 14.8 10^3/ul (1.6-7.5); SEGMENTED NEUTROPHILS (M) % 72 % (39-77); SMUDGE%M 3 % (0-0)
[2017-10-22] MEDS: predniSONE 20 MG TAB PO (11:30)
[2017-10-22 12:41] LABS: ANTI-DNA (DOUBLE STRANDED) <95 U/mL (< 301)
[2017-10-22] MEDS ORDERED: SOD CHLORIDE 0.9% 500 ML IV (21:30)
[2017-10-22] MEDS: SOD CHLORIDE 0.9% 500 ML IV (22:05)
[2017-10-23] MEDS: LEVALBUTEROL (NEB) 1.25 MG/0.5 ML AMP HHN ×4 (01:45→20:00)
[2017-10-23] MEDS: PANTOPRAZOLE 40 MG INJ IV (05:55)
[2017-10-23 07:44] LABS: ADD MAN DIFF? NO
[2017-10-23 07:51] LABS: ABNORMAL IP MESSAGE 1; BASOPHIL # 0.1 10^3/ul (0.0-0.1); BASOPHILS % 0.3 % (0.0-2.0); EOSINOPHILS # 0.3 10^3/ul (0.0-0.5); EOSINOPHILS % 1.3 % (0.0-7.0); HEMATOCRIT 26.9 % (37.0-47.0); HEMOGLOBIN 8.7 g/dl (12.0-16.0); LYMPHOCYTES # 3.1 10^3/ul (0.8-2.9); LYMPHOCYTES % 14.2 % (15.0-51.0); MEAN CORPUSCULAR HEMOGLOBIN 27.4 pg (29.0-33.0); MEAN CORPUSCULAR HGB CONC 32.3 g/dl (32.0-37.0); MEAN CORPUSCULAR VOLUME 84.6 fl (82.0-101.0); MEAN PLATELET VOLUME 9.9 fl (7.4-10.4); MONOCYTE # 0.7 10^3/ul (0.3-0.9); NEUTROPHIL # 16.4 10^3/ul (1.6-7.5); NEUTROPHILS % 74.3 % (39.0-77.0); PLATELET COUNT 846 10^3/UL (140-415); RED BLOOD COUNT 3.18 10^6/ul (4.20-5.40); RED CELL DISTRIBUTION WIDTH 16.6 % (11.5-14.5)
[2017-10-23 07:52] LABS: POSITIVE DIFF @See below
[2017-10-23 08:11] LABS: PHOSPHORUS 4.2 mg/dl (2.5-4.9)
[2017-10-23 08:14] LABS: ANION GAP 13 (8-16); BLOOD UREA NITROGEN 19 mg/dl (7-20); CALCIUM 8.8 mg/dl (8.4-10.2); CARBON DIOXIDE 29 mmol/L (21-31); CHLORIDE 104 mmol/L (97-110); CREATININE 0.47 mg/dl (0.44-1.00); GLUCOSE 86 mg/dl (70-220); POTASSIUM 3.6 mmol/L (3.5-5.1); SODIUM 142 mmol/L (135-144)
[2017-10-23] MEDS: OLOPATADINE 0.1% 5 ML OPH BOTH EYES (08:45)
[2017-10-23] MEDS: POTASSIUM CHLORIDE (SR) 20 MEQ TAB PO (08:45)
[2017-10-23] MEDS: ATENOLOL 25 MG TAB PO ×2 (08:45→20:37)
[2017-10-23] MEDS: NAPROXEN 500 MG TAB PO ×2 (08:45→20:37)
[2017-10-23 09:00] LABS: BAND NEUTROPHILS #M 1.7 10^3/ul (0.0-0.6); BAND NEUTROPHILS % (M) 8 % (0-4); EOSINOPHILS % (M) 1 % (0-7); HYPOCHROMASIA 1+ (0-0); LYMPHOCYTES #M 2.4 10^3/ul (0.8-2.9); LYMPHOCYTES % (M) 11 % (15-51); METAMYELOCYTES #M 0.2 10^3/ul (0.0-0.0); METAMYELOCYTES %M 1 % (0-0); MONOCYTE #M 0.6 10^3/ul (0.3-0.9); MONOCYTES % (M) 3 % (0-11); MYELOCYTES #M 0.4 10^3/ul (0.0-0.0); MYELOCYTES % (M) 2 % (0-0); PLATELET ESTIMATE INCREASED; POLYCHROMASIA 1+ (0-0); SEG NEUT #M 16.7 10^3/ul (1.6-7.5); SEGMENTED NEUTROPHILS (M) % 74 % (39-77); TARGET CELLS 1+ (0-0)
[2017-10-23] MEDS: predniSONE 20 MG TAB PO (12:15)
[2017-10-23] MEDS: IBUPROFEN 600 MG TAB PO (14:45)
[2017-10-24] MEDS: LEVALBUTEROL (NEB) 1.25 MG/0.5 ML AMP HHN ×4 (02:00→20:00)
[2017-10-24] MEDS: PANTOPRAZOLE 40 MG INJ IV (05:19)
[2017-10-24 08:27] LABS: WHITE BLOOD COUNT 30.3 10^3/ul (4.8-10.8)
[2017-10-24 08:27] LABS: ABNORMAL IP MESSAGE 1; HEMATOCRIT 26.6 % (37.0-47.0); HEMOGLOBIN 8.8 g/dl (12.0-16.0); MEAN CORPUSCULAR HEMOGLOBIN 28.5 pg (29.0-33.0); MEAN CORPUSCULAR HGB CONC 33.1 g/dl (32.0-37.0); MEAN CORPUSCULAR VOLUME 86.1 fl (82.0-101.0); MEAN PLATELET VOLUME 9.6 fl (7.4-10.4); PLATELET COUNT 835 10^3/UL (140-415); RED BLOOD COUNT 3.09 10^6/ul (4.20-5.40); RED CELL DISTRIBUTION WIDTH 17.1 % (11.5-14.5)
[2017-10-24 08:33] LABS: ADD MAN DIFF? YES; POSITIVE DIFF @See below
[2017-10-24] MEDS: ATENOLOL 25 MG TAB PO ×3 (08:33→20:42)
[2017-10-24] MEDS: NAPROXEN 500 MG TAB PO ×2 (08:33→20:42)
[2017-10-24] MEDS: POTASSIUM CHLORIDE (SR) 20 MEQ TAB PO (08:33)
[2017-10-24] MEDS: OLOPATADINE 0.1% 5 ML OPH BOTH EYES (08:34)
[2017-10-24 09:24] LABS: C-REACTIVE PROTEIN 17.1 mg/dl (0.0-0.9)
[2017-10-24 10:23] LABS: ANISOCYTOSIS 1+ (0-0); BAND NEUTROPHILS #M 2.7 10^3/ul (0.0-0.6); BAND NEUTROPHILS % (M) 9 % (0-4); HYPOCHROMASIA 1+ (0-0); LYMPHOCYTES #M 1.8 10^3/ul (0.8-2.9); LYMPHOCYTES % (M) 6 % (15-51); MONOCYTE #M 1.8 10^3/ul (0.3-0.9); MONOCYTES % (M) 6 % (0-11); MYELOCYTES #M 0.6 10^3/ul (0.0-0.0); MYELOCYTES % (M) 2 % (0-0); PLATELET ESTIMATE INCREASED; POLYCHROMASIA 3+ (0-0); SEG NEUT #M 24.1 10^3/ul (1.6-7.5); SEGMENTED NEUTROPHILS (M) % 77 % (39-77); SMUDGE%M 2 % (0-0)
[2017-10-24] MEDS: predniSONE 20 MG TAB PO (12:48)
[2017-10-24 17:51] LABS: CYCLIC CITRULLINATED PEP IGG <16 UNITS
[2017-10-25] MEDS: LEVALBUTEROL (NEB) 1.25 MG/0.5 ML AMP HHN ×4 (02:00→20:00)
[2017-10-25] MEDS: PANTOPRAZOLE 40 MG INJ IV (06:30)
[2017-10-25 07:05] LABS: WHITE BLOOD COUNT 29.1 10^3/ul (4.8-10.8)
[2017-10-25 07:05] LABS: ABNORMAL IP MESSAGE 1; HEMATOCRIT 26.9 % (37.0-47.0); HEMOGLOBIN 8.8 g/dl (12.0-16.0); MEAN CORPUSCULAR HEMOGLOBIN 27.9 pg (29.0-33.0); MEAN CORPUSCULAR HGB CONC 32.7 g/dl (32.0-37.0); MEAN CORPUSCULAR VOLUME 85.4 fl (82.0-101.0); MEAN PLATELET VOLUME 9.7 fl (7.4-10.4); NUCLEATED RED BLOOD CELLS% 0.1 /100WBC (0.0-0.0); PLATELET COUNT 940 10^3/UL (140-415); RED BLOOD COUNT 3.15 10^6/ul (4.20-5.40); RED CELL DISTRIBUTION WIDTH 17.2 % (11.5-14.5)
[2017-10-25 07:16] LABS: ADD MAN DIFF? YES; POSITIVE DIFF @See below
[2017-10-25 07:35] LABS: ANION GAP 16 (8-16); BLOOD UREA NITROGEN 20 mg/dl (7-20); CALCIUM 8.9 mg/dl (8.4-10.2); CARBON DIOXIDE 28 mmol/L (21-31); CHLORIDE 102 mmol/L (97-110); CREATININE 0.51 mg/dl (0.44-1.00); GLUCOSE 89 mg/dl (70-220); POTASSIUM 3.9 mmol/L (3.5-5.1); SODIUM 142 mmol/L (135-144)
[2017-10-25 08:30] LABS: BAND NEUTROPHILS #M 0.8 10^3/ul (0.0-0.6); BAND NEUTROPHILS % (M) 3 % (0-4); EOSINOPHILS % (M) 1 % (0-7); LYMPHOCYTES #M 3.7 10^3/ul (0.8-2.9); LYMPHOCYTES % (M) 13 % (15-51); MONOCYTE #M 0.2 10^3/ul (0.3-0.9); MONOCYTES % (M) 1 % (0-11); PLATELET ESTIMATE INCREASED; POLYCHROMASIA 2+ (0-0); SEG NEUT #M 24.1 10^3/ul (1.6-7.5); SEGMENTED NEUTROPHILS (M) % 82 % (39-77); SMUDGE%M 7 % (0-0)
[2017-10-25] MEDS: NAPROXEN 500 MG TAB PO ×2 (08:36→20:21)
[2017-10-25] MEDS: POTASSIUM CHLORIDE (SR) 20 MEQ TAB PO (08:36)
[2017-10-25] MEDS: OLOPATADINE 0.1% 5 ML OPH BOTH EYES (08:36)
[2017-10-25] MEDS: ATENOLOL 25 MG TAB PO ×3 (08:36→20:20)
[2017-10-25] MEDS: predniSONE 20 MG TAB PO ×2 (13:33→13:34)
[2017-10-26] MEDS: LEVALBUTEROL (NEB) 1.25 MG/0.5 ML AMP HHN ×4 (02:00→20:00)
[2017-10-26] MEDS: PANTOPRAZOLE 40 MG INJ IV (05:51)
[2017-10-26] MEDS: ATENOLOL 25 MG TAB PO ×2 (08:49→20:52)
[2017-10-26] MEDS: NAPROXEN 500 MG TAB PO ×2 (08:58→20:52)
[2017-10-26] MEDS: POTASSIUM CHLORIDE (SR) 20 MEQ TAB PO (08:58)
[2017-10-26] MEDS: OLOPATADINE 0.1% 5 ML OPH BOTH EYES (08:59)
[2017-10-26] MEDS: predniSONE 20 MG TAB PO (12:50)
[2017-10-26] MEDS ORDERED: LIDOCAINE 1% (MPF) 5 ML VIAL SC (16:00)
[2017-10-27] MEDS: LEVALBUTEROL (NEB) 1.25 MG/0.5 ML AMP HHN ×4 (01:45→19:25)
[2017-10-27] MEDS: PANTOPRAZOLE 40 MG INJ IV (05:15)
[2017-10-27 07:48] LABS: ABNORMAL IP MESSAGE 1; HEMATOCRIT 25.6 % (37.0-47.0); HEMOGLOBIN 8.5 g/dl (12.0-16.0); MEAN CORPUSCULAR HEMOGLOBIN 28.2 pg (29.0-33.0); MEAN CORPUSCULAR HGB CONC 33.2 g/dl (32.0-37.0); MEAN PLATELET VOLUME 9.6 fl (7.4-10.4); PLATELET COUNT 837 10^3/UL (140-415); RED BLOOD COUNT 3.01 10^6/ul (4.20-5.40); RED CELL DISTRIBUTION WIDTH 17.8 % (11.5-14.5)
[2017-10-27 07:58] LABS: ANION GAP 12 (8-16); BLOOD UREA NITROGEN 18 mg/dl (7-20); CALCIUM 8.7 mg/dl (8.4-10.2); CARBON DIOXIDE 28 mmol/L (21-31); CHLORIDE 100 mmol/L (97-110); CREATININE 0.56 mg/dl (0.44-1.00); GLUCOSE 81 mg/dl (70-220); POTASSIUM 4.1 mmol/L (3.5-5.1); SODIUM 136 mmol/L (135-144)
[2017-10-27] MEDS: ATENOLOL 25 MG TAB PO ×2 (08:08→21:12)
[2017-10-27 08:09] LABS: POSITIVE DIFF @See below
[2017-10-27 08:10] LABS: ADD MAN DIFF? YES
[2017-10-27] MEDS: POTASSIUM CHLORIDE (SR) 20 MEQ TAB PO (08:27)
[2017-10-27] MEDS: OLOPATADINE 0.1% 5 ML OPH BOTH EYES (08:27)
[2017-10-27] MEDS: NAPROXEN 500 MG TAB PO ×3 (08:28→21:12)
[2017-10-27 08:30] LABS: INR 1.24; PROTIME 15.8 Sec (11.9-14.9); PT RATIO 1.2
[2017-10-27 08:31] LABS: PARTIAL THROMBOPLASTIN TIME 41.1 Sec (25.0-35.0)
[2017-10-27 09:42] LABS: ANISOCYTOSIS 1+ (0-0); BAND NEUTROPHILS #M 1.3 10^3/ul (0.0-0.6); BAND NEUTROPHILS % (M) 4 % (0-4); LYMPHOCYTES % (M) 6 % (15-51); METAMYELOCYTES #M 0.3 10^3/ul (0.0-0.0); METAMYELOCYTES %M 1 % (0-0); MONOCYTE #M 0.3 10^3/ul (0.3-0.9); MONOCYTES % (M) 1 % (0-11); PLATELET ESTIMATE INCREASED; POLYCHROMASIA 1+ (0-0); PROMYELOCYTES #M 0.3 10^3/ul (0-0); PROMYELOCYTES % (M) 1 % (0-0); SEGMENTED NEUTROPHILS (M) % 87 % (39-77); SMUDGE%M 6 % (0-0)
[2017-10-27] MEDS: predniSONE 20 MG TAB PO (12:14)
[2017-10-28] MEDS: LEVALBUTEROL (NEB) 1.25 MG/0.5 ML AMP HHN ×4 (01:05→19:46)
[2017-10-28] MEDS: PANTOPRAZOLE 40 MG INJ IV (05:28)
[2017-10-28 08:20] LABS: ABNORMAL IP MESSAGE 1; HEMATOCRIT 26.4 % (37.0-47.0); HEMOGLOBIN 8.8 g/dl (12.0-16.0); MEAN CORPUSCULAR HEMOGLOBIN 28.5 pg (29.0-33.0); MEAN CORPUSCULAR HGB CONC 33.3 g/dl (32.0-37.0); MEAN CORPUSCULAR VOLUME 85.4 fl (82.0-101.0); MEAN PLATELET VOLUME 9.3 fl (7.4-10.4); PLATELET COUNT 787 10^3/UL (140-415); RED BLOOD COUNT 3.09 10^6/ul (4.20-5.40); RED CELL DISTRIBUTION WIDTH 17.7 % (11.5-14.5)
[2017-10-28 08:20] LABS: WHITE BLOOD COUNT 28.1 10^3/ul (4.8-10.8)
[2017-10-28 08:32] LABS: ADD MAN DIFF? YES; POSITIVE DIFF @See below
[2017-10-28] MEDS: ATENOLOL 25 MG TAB PO ×2 (08:36→21:00)
[2017-10-28] MEDS: NAPROXEN 500 MG TAB PO ×2 (08:36→21:34)
[2017-10-28] MEDS: OLOPATADINE 0.1% 5 ML OPH BOTH EYES (08:36)
[2017-10-28] MEDS: POTASSIUM CHLORIDE (SR) 20 MEQ TAB PO (08:36)
[2017-10-28 09:39] LABS: ANISOCYTOSIS 1+ (0-0); BAND NEUTROPHILS #M 2.2 10^3/ul (0.0-0.6); BAND NEUTROPHILS % (M) 8 % (0-4); EOSINOPHILS % (M) 2 % (0-7); LYMPHOCYTES #M 1.6 10^3/ul (0.8-2.9); LYMPHOCYTES % (M) 6 % (15-51); METAMYELOCYTES #M 0.5 10^3/ul (0.0-0.0); METAMYELOCYTES %M 2 % (0-0); MONOCYTE #M 0.5 10^3/ul (0.3-0.9); MONOCYTES % (M) 2 % (0-11); MYELOCYTES #M 0.5 10^3/ul (0.0-0.0); MYELOCYTES % (M) 2 % (0-0); PLATELET ESTIMATE INCREASED; POLYCHROMASIA 3+ (0-0); SEG NEUT #M 22.5 10^3/ul (1.6-7.5); SEGMENTED NEUTROPHILS (M) % 78 % (39-77); SMUDGE%M 6 % (0-0)
[2017-10-28] MEDS: predniSONE 20 MG TAB PO (11:34)
[2017-10-28] MEDS: LIDOCAINE 1% (MDV) 20 ML INJ (15:55)
[2017-10-28] MEDS: SOD CHLORIDE 0.9% 250 ML (16:24)
[2017-10-28] MEDS: MIDAZOLAM 1 MG/ML 2 ML INJ (16:27)
[2017-10-28] MEDS: FENTAnyl 50 MCG/ML VIAL (16:28)
[2017-10-29] MEDS: LEVALBUTEROL (NEB) 1.25 MG/0.5 ML AMP HHN ×4 (02:00→19:37)
[2017-10-29] MEDS: PANTOPRAZOLE 40 MG INJ IV (06:51)
[2017-10-29] MEDS: NAPROXEN 500 MG TAB PO ×2 (08:27→21:19)
[2017-10-29] MEDS: POTASSIUM CHLORIDE (SR) 20 MEQ TAB PO (08:27)
[2017-10-29] MEDS: OLOPATADINE 0.1% 5 ML OPH BOTH EYES (08:28)
[2017-10-29] MEDS: ATENOLOL 25 MG TAB PO ×2 (08:29→21:00)
[2017-10-29] MEDS: predniSONE 20 MG TAB PO (12:27)
[2017-10-29] MEDS: FUROSEMIDE 20 MG INJ IV (12:59)
[2017-10-30] MEDS: LEVALBUTEROL (NEB) 1.25 MG/0.5 ML AMP HHN ×4 (01:26→20:00)
[2017-10-30] MEDS: PANTOPRAZOLE 40 MG INJ IV (05:52)
[2017-10-30 08:23] LABS: ADD MAN DIFF? NO
[2017-10-30 08:27] LABS: WHITE BLOOD COUNT 19.2 10^3/ul (4.8-10.8)
[2017-10-30 08:27] LABS: BASOPHIL # 0.1 10^3/ul (0.0-0.1); BASOPHILS % 0.4 % (0.0-2.0); EOSINOPHILS # 0.2 10^3/ul (0.0-0.5); EOSINOPHILS % 0.8 % (0.0-7.0); HEMATOCRIT 25.3 % (37.0-47.0); HEMOGLOBIN 8.7 g/dl (12.0-16.0); LYMPHOCYTES # 2.1 10^3/ul (0.8-2.9); LYMPHOCYTES % 10.7 % (15.0-51.0); MEAN CORPUSCULAR HEMOGLOBIN 28.9 pg (29.0-33.0); MEAN CORPUSCULAR HGB CONC 34.4 g/dl (32.0-37.0); MEAN CORPUSCULAR VOLUME 84.1 fl (82.0-101.0); MEAN PLATELET VOLUME 9.3 fl (7.4-10.4); MONOCYTE # 0.6 10^3/ul (0.3-0.9); NEUTROPHIL # 15.5 10^3/ul (1.6-7.5); NEUTROPHILS % 80.6 % (39.0-77.0); RED BLOOD COUNT 3.01 10^6/ul (4.20-5.40); RED CELL DISTRIBUTION WIDTH 17.4 % (11.5-14.5)
[2017-10-30 08:37] LABS: PLATELET COUNT 652 10^3/UL (140-415)
[2017-10-30 08:53] LABS: PHOSPHORUS 4.5 mg/dl (2.5-4.9)
[2017-10-30 08:53] LABS: MAGNESIUM 2.1 mg/dl (1.7-2.5)
[2017-10-30 08:54] LABS: ANION GAP 13 (8-16); BLOOD UREA NITROGEN 27 mg/dl (7-20); CALCIUM 9.2 mg/dl (8.4-10.2); CARBON DIOXIDE 27 mmol/L (21-31); CHLORIDE 101 mmol/L (97-110); GLUCOSE 96 mg/dl (70-220); POTASSIUM 4.1 mmol/L (3.5-5.1); SODIUM 137 mmol/L (135-144)
[2017-10-30] MEDS: ATENOLOL 25 MG TAB PO ×2 (09:00→20:59)
[2017-10-30] MEDS: OLOPATADINE 0.1% 5 ML OPH BOTH EYES (09:24)
[2017-10-30] MEDS: POTASSIUM CHLORIDE (SR) 20 MEQ TAB PO (09:24)
[2017-10-30] MEDS: NAPROXEN 500 MG TAB PO ×2 (09:25→20:58)
[2017-10-30] MEDS: predniSONE 20 MG TAB PO (13:54)
[2017-10-31] MEDS: LEVALBUTEROL (NEB) 1.25 MG/0.5 ML AMP HHN ×5 (02:00→20:00)
[2017-10-31] MEDS: PANTOPRAZOLE 40 MG INJ IV (05:37)
[2017-10-31] MEDS: ATENOLOL 25 MG TAB PO ×2 (09:00→20:14)
[2017-10-31] MEDS: OLOPATADINE 0.1% 5 ML OPH BOTH EYES (09:02)
[2017-10-31] MEDS: POTASSIUM CHLORIDE (SR) 20 MEQ TAB PO (09:02)
[2017-10-31] MEDS: NAPROXEN 500 MG TAB PO ×2 (09:02→20:18)
[2017-10-31] MEDS: predniSONE 20 MG TAB PO (13:16)
[2017-11-01] MEDS: PANTOPRAZOLE 40 MG INJ IV (05:03)
[2017-11-01] MEDS: LEVALBUTEROL (NEB) 1.25 MG/0.5 ML AMP HHN ×3 (08:00→20:00)
[2017-11-01] MEDS: OLOPATADINE 0.1% 5 ML OPH BOTH EYES (08:38)
[2017-11-01] MEDS: NAPROXEN 500 MG TAB PO ×2 (08:38→20:49)
[2017-11-01] MEDS: POTASSIUM CHLORIDE (SR) 20 MEQ TAB PO (08:39)
[2017-11-01] MEDS: FLUDROCORTISONE 0.1 MG TAB PO (08:44)
[2017-11-01] MEDS: ATENOLOL 25 MG TAB PO ×2 (08:45→20:50)
[2017-11-01] MEDS: predniSONE 20 MG TAB PO (12:08)
[2017-11-02] MEDS: LEVALBUTEROL (NEB) 1.25 MG/0.5 ML AMP HHN ×4 (02:00→20:00)
[2017-11-02] MEDS: PANTOPRAZOLE 40 MG INJ IV (05:24)
[2017-11-02 06:16] LABS: ADD MAN DIFF? NO
[2017-11-02 06:38] LABS: BASOPHIL # 0.1 10^3/ul (0.0-0.1); BASOPHILS % 0.3 % (0.0-2.0); EOSINOPHILS # 0.2 10^3/ul (0.0-0.5); EOSINOPHILS % 0.7 % (0.0-7.0); HEMATOCRIT 25.3 % (37.0-47.0); HEMOGLOBIN 8.6 g/dl (12.0-16.0); LYMPHOCYTES # 2.7 10^3/ul (0.8-2.9); LYMPHOCYTES % 12.2 % (15.0-51.0); MEAN CORPUSCULAR HEMOGLOBIN 28.8 pg (29.0-33.0); MEAN CORPUSCULAR VOLUME 84.6 fl (82.0-101.0); MEAN PLATELET VOLUME 9.5 fl (7.4-10.4); MONOCYTE # 0.4 10^3/ul (0.3-0.9); MONOCYTES % 1.7 % (0.0-11.0); NEUTROPHIL # 17.8 10^3/ul (1.6-7.5); NEUTROPHILS % 81.2 % (39.0-77.0); PLATELET COUNT 604 10^3/UL (140-415); RED BLOOD COUNT 2.99 10^6/ul (4.20-5.40)
[2017-11-02] MEDS: OLOPATADINE 0.1% 5 ML OPH BOTH EYES (08:34)
[2017-11-02] MEDS: POTASSIUM CHLORIDE (SR) 20 MEQ TAB PO (08:37)
[2017-11-02] MEDS: FLUDROCORTISONE 0.1 MG TAB PO (08:37)
[2017-11-02] MEDS: ATENOLOL 25 MG TAB PO ×2 (08:37→21:00)
[2017-11-02] MEDS: NAPROXEN 500 MG TAB PO (08:37)
[2017-11-02] MEDS: predniSONE 20 MG TAB PO (12:24)
[2017-11-03] MEDS: LEVALBUTEROL (NEB) 1.25 MG/0.5 ML AMP HHN ×4 (01:40→20:00)
[2017-11-03] MEDS: PANTOPRAZOLE 40 MG INJ IV (06:24)
[2017-11-03] MEDS: OLOPATADINE 0.1% 5 ML OPH BOTH EYES (08:31)
[2017-11-03] MEDS: FLUDROCORTISONE 0.1 MG TAB PO (08:31)
[2017-11-03] MEDS: POTASSIUM CHLORIDE (SR) 20 MEQ TAB PO (08:31)
[2017-11-03] MEDS: ATENOLOL 25 MG TAB PO ×2 (08:33→21:00)
[2017-11-03 11:07] LABS: ADD MAN DIFF? NO
[2017-11-03 11:12] LABS: WHITE BLOOD COUNT 21.1 10^3/ul (4.8-10.8)
[2017-11-03 11:12] LABS: BASOPHIL # 0.1 10^3/ul (0.0-0.1); BASOPHILS % 0.3 % (0.0-2.0); EOSINOPHILS # 0.2 10^3/ul (0.0-0.5); EOSINOPHILS % 0.9 % (0.0-7.0); HEMATOCRIT 26.5 % (37.0-47.0); HEMOGLOBIN 8.7 g/dl (12.0-16.0); LYMPHOCYTES # 2.4 10^3/ul (0.8-2.9); LYMPHOCYTES % 11.2 % (15.0-51.0); MEAN CORPUSCULAR HEMOGLOBIN 27.8 pg (29.0-33.0); MEAN CORPUSCULAR HGB CONC 32.8 g/dl (32.0-37.0); MEAN CORPUSCULAR VOLUME 84.7 fl (82.0-101.0); MONOCYTE # 0.6 10^3/ul (0.3-0.9); MONOCYTES % 2.7 % (0.0-11.0); NEUTROPHIL # 17.3 10^3/ul (1.6-7.5); NEUTROPHILS % 82.2 % (39.0-77.0); PLATELET COUNT 577 10^3/UL (140-415); RED BLOOD COUNT 3.13 10^6/ul (4.20-5.40); RED CELL DISTRIBUTION WIDTH 18.4 % (11.5-14.5)
[2017-11-03] MEDS: predniSONE 20 MG TAB PO (13:41)
[2017-11-04] MEDS: LEVALBUTEROL (NEB) 1.25 MG/0.5 ML AMP HHN ×4 (02:00→19:58)
[2017-11-04] MEDS: PANTOPRAZOLE 40 MG INJ IV (06:04)
[2017-11-04] MEDS: OLOPATADINE 0.1% 5 ML OPH BOTH EYES (09:00)
[2017-11-04] MEDS: POTASSIUM CHLORIDE (SR) 20 MEQ TAB PO (09:07)
[2017-11-04] MEDS: ATENOLOL 25 MG TAB PO ×2 (09:08→21:00)
[2017-11-04] MEDS: FLUDROCORTISONE 0.1 MG TAB PO (09:08)
[2017-11-04 11:28] LABS: ADD MAN DIFF? NO
[2017-11-04 11:33] LABS: BASOPHIL # 0.1 10^3/ul (0.0-0.1); BASOPHILS % 0.3 % (0.0-2.0); EOSINOPHILS # 0.2 10^3/ul (0.0-0.5); EOSINOPHILS % 0.9 % (0.0-7.0); HEMATOCRIT 25.8 % (37.0-47.0); HEMOGLOBIN 8.7 g/dl (12.0-16.0); LYMPHOCYTES # 2.7 10^3/ul (0.8-2.9); MEAN CORPUSCULAR HEMOGLOBIN 28.5 pg (29.0-33.0); MEAN CORPUSCULAR HGB CONC 33.7 g/dl (32.0-37.0); MEAN CORPUSCULAR VOLUME 84.6 fl (82.0-101.0); MEAN PLATELET VOLUME 9.5 fl (7.4-10.4); MONOCYTE # 0.6 10^3/ul (0.3-0.9); MONOCYTES % 3.1 % (0.0-11.0); NEUTROPHIL # 13.8 10^3/ul (1.6-7.5); NEUTROPHILS % 77.5 % (39.0-77.0); PLATELET COUNT 553 10^3/UL (140-415); RED BLOOD COUNT 3.05 10^6/ul (4.20-5.40); RED CELL DISTRIBUTION WIDTH 18.8 % (11.5-14.5)
[2017-11-04 11:33] LABS: WHITE BLOOD COUNT 17.9 10^3/ul (4.8-10.8)
[2017-11-04] MEDS: predniSONE 20 MG TAB PO (12:30)
== END 2017-11-04 22:45 | disposition home or self-care (01) | DRG 853 ==
LOC: ICU 10-10 22:47 → MS2 11-04 01:37 → TEL 10-15 10:17 → MS4 04:18
PROC: 02BN0ZZ Excision of Pericardium, Open Approach (ICD-10-PCS; principal; 2017-10-13 07:30)
PROC: 0BNL0ZZ Release Left Lung, Open Approach (ICD-10-PCS; 2017-10-13 07:30)
PROC: 0W9D00Z Drainage of Pericardial Cavity with Drainage Device, Open Approach (ICD-10-PCS; 2017-10-13 07:30)
PROC: 0W9B00Z Drainage of Left Pleural Cavity with Drainage Device, Open Approach (ICD-10-PCS; 2017-10-13 07:30)
PROC: 0QB33ZX Excision of Left Pelvic Bone, Percutaneous Approach, Diagnostic (ICD-10-PCS; 2017-10-13 08:12)
PROC: 30233N1 Transfusion of Nonautologous Red Blood Cells into Peripheral Vein, Percutaneous Approach (ICD-10-PCS; 2017-10-13 08:12)
DX: A41.9 Sepsis, unspecified organism (principal); J18.9 Pneumonia, unspecified organism; J90 Pleural effusion, not elsewhere classified; I31.3 Pericardial effusion (noninflammatory); I11.0 Hypertensive heart disease with heart failure; I50.9 Heart failure, unspecified; I95.9 Hypotension, unspecified; N39.0 Urinary tract infection, site not specified; D64.9 Anemia, unspecified; R73.03 Prediabetes; R06.03 Acute respiratory distress; R09.02 Hypoxemia; R76.0 Raised antibody titer; R00.0 Tachycardia, unspecified
CPT/HCPCS: 36430; 36600; 71045; 71250; 74018; 76705; 76942; 77012; 80048; 80053; 81270; 82803; 83036; 83605; 83735; 84100; 84145; 84443; 84484; 85025; 85610; 85651; 85730; 86021; 86038; 86140; 86160; 86200; 86226; 86235; 86255; 86430; 86480; 86850; 86900; 86901; 86920; 87040; 87070; 87081; 87086; 87102; 87116; 87400; 88305; 88311; 88313; 93005; 93306; 93308; 94640; 97116; 97162; 97530; J1940

== ENCOUNTER 2017-11-25 21:37 | Inpatient (IN) | payer MEDICAID, OTHER ==
[2017-11-25] MEDS: morphine 4 MG/ML VIAL IV (23:31)
[2017-11-25] MEDS: ONDANSETRON 4 MG INJ IV (23:31)
[2017-11-25] MEDS: SODIUM CHLORIDE 0.9% 1L BAG IV* (23:31)
[2017-11-25] MEDS: PIPER-TAZO 3.375 GM IV (PMX) 100 ML IVPB (23:32)
[2017-11-25 23:36] LABS: ADD MAN DIFF? NO
[2017-11-25 23:40] LABS: BASOPHILS % 0.1 % (0.0-2.0); EOSINOPHILS # 0.1 10^3/ul (0.0-0.5); EOSINOPHILS % 0.9 % (0.0-7.0); HEMATOCRIT 28.6 % (37.0-47.0); HEMOGLOBIN 9.1 g/dl (12.0-16.0); LYMPHOCYTES % 7.3 % (15.0-51.0); MEAN CORPUSCULAR HEMOGLOBIN 25.7 pg (29.0-33.0); MEAN CORPUSCULAR HGB CONC 31.8 g/dl (32.0-37.0); MEAN CORPUSCULAR VOLUME 80.8 fl (82.0-101.0); MEAN PLATELET VOLUME 8.5 fl (7.4-10.4); MONOCYTE # 0.4 10^3/ul (0.3-0.9); MONOCYTES % 2.7 % (0.0-11.0); NEUTROPHIL # 12.3 10^3/ul (1.6-7.5); NEUTROPHILS % 88.1 % (39.0-77.0); PLATELET COUNT 485 10^3/UL (140-415); RED BLOOD COUNT 3.54 10^6/ul (4.20-5.40); RED CELL DISTRIBUTION WIDTH 19.2 % (11.5-14.5)
[2017-11-25 23:40] LABS: WHITE BLOOD COUNT 13.9 10^3/ul (4.8-10.8)
[2017-11-25 23:55] LABS: INR 1.27; PROTIME 16.1 Sec (11.9-14.9); PT RATIO 1.3
[2017-11-25 23:56] LABS: PARTIAL THROMBOPLASTIN TIME 42.3 Sec (25.0-35.0)
[2017-11-25 23:59] LABS: LACTIC ACID 1.6 mmol/L (0.5-2.0)
[2017-11-25 23:59] LABS: ALANINE AMINOTRANSFERASE 25 IU/L (13-69); ALBUMIN 3.4 g/dl (3.3-4.9); ALBUMIN/GLOBULIN RATIO 0.75; ALKALINE PHOSPHATASE 109 IU/L (42-121); ANION GAP 16 (8-16); ASPARTATE AMINO TRANSFERASE 39 IU/L (15-46); BILIRUBIN,INDIRECT 0.3 mg/dl (0-1.1); BILIRUBIN,TOTAL 0.3 mg/dl (0.2-1.3); BLOOD UREA NITROGEN 9 mg/dl (7-20); CALCIUM 8.8 mg/dl (8.4-10.2); CARBON DIOXIDE 29 mmol/L (21-31); CHLORIDE 96 mmol/L (97-110); GLUCOSE 98 mg/dl (70-220); POTASSIUM 3.8 mmol/L (3.5-5.1); SODIUM 137 mmol/L (135-144); TOTAL PROTEIN 7.9 g/dl (6.1-8.1)
[2017-11-26 00:13] LABS: TROPONIN-I < 0.012 ng/ml (0.00-0.12)
[2017-11-26] MEDS: VANCOMYCIN 1 GM (PMX) 250 ML IVPB (00:52)
[2017-11-26] MEDS: ACETAMINOPHEN 500 MG TAB PO (01:53)
[2017-11-26] MEDS: SOD CHLORIDE 0.9% 1,000 ML IV ×2 (01:59→05:14)
[2017-11-26 02:16] LABS: LACTIC ACID 1.3 mmol/L (0.5-2.0)
[2017-11-26] MEDS: IOHEXOL 300MG/ML 150 ML BTL (02:56)
[2017-11-26] MEDS: SOD CHLORIDE 0.9% 100 ML (02:57)
[2017-11-26] MEDS ORDERED: ONDANSETRON 4 MG INJ IV (05:00)
[2017-11-26 07:05] LABS: LACTIC ACID 1.2 mmol/L (0.5-2.0)
[2017-11-26 07:17] LABS: ADD UMIC YES; UR ASCORBIC ACID NEGATIVE (NEGATIVE); UR BILIRUBIN (Dip) NEGATIVE (NEGATIVE); UR BLOOD (Dip) 2+ mg/dL (NEGATIVE); UR CLARITY CLEAR (CLEAR); UR COLOR STRAW (YELLOW); UR GLUCOSE (Dip) NEGATIVE (NEGATIVE); UR KETONES (Dip) 1+ mg/dL (NEGATIVE); UR LEUKOCYTE ESTERASE (Dip) NEGATIVE Leu/ul (NEGATIVE); UR NITRITE (Dip) NEGATIVE (NEGATIVE); UR RBC 1 /HPF (0-5); UR SPECIFIC GRAVITY (Dip) 1.032 (1.003-1.030); UR TOTAL PROTEIN (Dip) NEGATIVE (NEGATIVE); UR UROBILINOGEN (Dip) NEGATIVE (NEGATIVE); UR WBC 1 /HPF (0-5)
[2017-11-26] MEDS: ACETAMINOPHEN 325 MG TAB PO ×2 (09:00→13:00)
[2017-11-26] MEDS ORDERED: ACETAMINOPHEN 325 MG TAB PO (17:00)
[2017-11-26] MEDS ORDERED: NACL 0.9% 3 ML SYG IV (17:00)
[2017-11-26] MEDS ORDERED: VANCOMYCIN IV PER PHARMACY XX (17:00)
[2017-11-26] MEDS ORDERED: HYDROCODONE/APAP (5/325) TAB PO (17:00)
[2017-11-26] MEDS ORDERED: MAGNESIUM HYDROXIDE 30ML CUP PO (17:00)
[2017-11-26] MEDS ORDERED: IBUPROFEN 600 MG TAB PO (17:30)
[2017-11-26 18:01] LABS: ANION GAP 17 (8-16); BLOOD UREA NITROGEN 4 mg/dl (7-20); CALCIUM 8.5 mg/dl (8.4-10.2); CARBON DIOXIDE 20 mmol/L (21-31); CHLORIDE 103 mmol/L (97-110); CREATININE 0.49 mg/dl (0.44-1.00); GLUCOSE 59 mg/dl (70-220); POTASSIUM 3.4 mmol/L (3.5-5.1); SODIUM 137 mmol/L (135-144)
[2017-11-26] MEDS: DEXTROSE 5%-0.9% NACL 1,000 ML IV (18:45)
[2017-11-26] MEDS: PIPER-TAZO 3.375 GM IV (PMX) 100 ML IVPB ×2 (18:45→22:40)
[2017-11-26] MEDS: VANCOMYCIN 750 MG in DEXTROSE 5% 150 ML IVPB (20:48)
[2017-11-26] MEDS: FAMOTIDINE 20 MG INJ IV (20:48)
[2017-11-26] MEDS: ACETAMINOPHEN 650 MG SUPP PR (22:29)
[2017-11-26] MEDS: ARTIFICIAL TEARS 15 ML OPH BOTH EYES (22:29)
[2017-11-26] MEDS: morphine 2 MG INJ IV (22:39)
[2017-11-27] MEDS: ACETAMINOPHEN 650 MG SUPP PR ×3 (01:45→11:44)
[2017-11-27] MEDS: PIPER-TAZO 3.375 GM IV (PMX) 100 ML IVPB ×3 (05:29→22:56)
[2017-11-27] MEDS: DEXTROSE 5%-0.9% NACL 1,000 ML IV ×2 (05:30→19:40)
[2017-11-27] MEDS: morphine 2 MG INJ IV (06:19)
[2017-11-27] MEDS: ONDANSETRON 4 MG INJ IV (06:25)
[2017-11-27 06:57] LABS: ALANINE AMINOTRANSFERASE 21 IU/L (13-69); ALBUMIN 2.6 g/dl (3.3-4.9); ALBUMIN/GLOBULIN RATIO 0.72; ALKALINE PHOSPHATASE 100 IU/L (42-121); ANION GAP 12 (8-16); ASPARTATE AMINO TRANSFERASE 35 IU/L (15-46); BILIRUBIN,INDIRECT 0.1 mg/dl (0-1.1); BILIRUBIN,TOTAL 0.1 mg/dl (0.2-1.3); BLOOD UREA NITROGEN 2 mg/dl (7-20); CALCIUM 7.9 mg/dl (8.4-10.2); CARBON DIOXIDE 24 mmol/L (21-31); CHLORIDE 102 mmol/L (97-110); CREATININE 0.49 mg/dl (0.44-1.00); GLUCOSE 101 mg/dl (70-220); MAGNESIUM 1.5 mg/dl (1.7-2.5); PHOSPHORUS 3.2 mg/dl (2.5-4.9); SODIUM 135 mmol/L (135-144); TOTAL PROTEIN 6.2 g/dl (6.1-8.1)
[2017-11-27 07:14] LABS: POTASSIUM 2.9 mmol/L (3.5-5.1)
[2017-11-27] MEDS: POTASSIUM CHLORIDE 100 ML IVPB ×2 (07:30→11:30)
[2017-11-27] MEDS: predniSONE 10 MG TAB PO (09:00)
[2017-11-27] MEDS ORDERED: FLUDROCORTISONE 0.1 MG TAB PO (09:00)
[2017-11-27] MEDS: VANCOMYCIN 750 MG in DEXTROSE 5% 150 ML IVPB ×2 (09:17→22:02)
[2017-11-27] MEDS: FAMOTIDINE 20 MG INJ IV ×2 (09:17→21:29)
[2017-11-27] MEDS: ENOXAPARIN 40 MG/0.4 ML SYG SC (09:40)
[2017-11-27 11:30] LABS: ADD MAN DIFF? NO
[2017-11-27 11:34] LABS: BASOPHILS % 0.2 % (0.0-2.0); EOSINOPHILS # 0.1 10^3/ul (0.0-0.5); EOSINOPHILS % 0.7 % (0.0-7.0); HEMATOCRIT 25.9 % (37.0-47.0); HEMOGLOBIN 8.1 g/dl (12.0-16.0); LYMPHOCYTES # 0.9 10^3/ul (0.8-2.9); LYMPHOCYTES % 4.6 % (15.0-51.0); MEAN CORPUSCULAR HEMOGLOBIN 25.1 pg (29.0-33.0); MEAN CORPUSCULAR HGB CONC 31.3 g/dl (32.0-37.0); MEAN CORPUSCULAR VOLUME 80.2 fl (82.0-101.0); MEAN PLATELET VOLUME 9.3 fl (7.4-10.4); MONOCYTE # 0.6 10^3/ul (0.3-0.9); MONOCYTES % 3.1 % (0.0-11.0); NEUTROPHIL # 17.5 10^3/ul (1.6-7.5); NEUTROPHILS % 90.7 % (39.0-77.0); PLATELET COUNT 441 10^3/UL (140-415); RED BLOOD COUNT 3.23 10^6/ul (4.20-5.40); RED CELL DISTRIBUTION WIDTH 19.5 % (11.5-14.5)
[2017-11-27 11:34] LABS: WHITE BLOOD COUNT 19.3 10^3/ul (4.8-10.8)
[2017-11-27] MEDS: NAPROXEN 500 MG TAB PO ×2 (12:00→21:00)
[2017-11-27] MEDS: MAGNESIUM SULFATE 4 GM/100 ML 100 ML IVPB (13:00)
[2017-11-27] MEDS: NYSTATIN SUSP 5 ML CUP PO ×3 (13:00→21:28)
[2017-11-27 13:11] LABS: ERYTHROCYTE SEDIMENTATION RATE 130 mm/Hr (0-30)
[2017-11-27 13:47] LABS: C-REACTIVE PROTEIN 47.8 mg/dl (0.0-0.9)
[2017-11-27] MEDS: METHYLPREDNISOLONE 40 MG INJ IV ×2 (14:28→21:28)
[2017-11-27 17:11] LABS: FERRITIN > 10000.0 ng/ml (11.1-264.0)
[2017-11-27] MEDS: FLUCONAZOLE 200 MG/NS (PMX) 100 ML IVPB (17:44)
[2017-11-27 21:54] LABS: VANCOMYCIN,TROUGH 5.1 ug/ml (10.0-20.0)
[2017-11-28] MEDS: VANCOMYCIN 750 MG in DEXTROSE 5% 150 ML IVPB ×3 (06:15→22:37)
[2017-11-28 06:34] LABS: ADD MAN DIFF? NO
[2017-11-28 06:37] LABS: WHITE BLOOD COUNT 15.1 10^3/ul (4.8-10.8)
[2017-11-28 06:37] LABS: BASOPHILS % 0.1 % (0.0-2.0); HEMATOCRIT 26.3 % (37.0-47.0); HEMOGLOBIN 8.6 g/dl (12.0-16.0); LYMPHOCYTES # 0.7 10^3/ul (0.8-2.9); LYMPHOCYTES % 4.6 % (15.0-51.0); MEAN CORPUSCULAR HEMOGLOBIN 25.7 pg (29.0-33.0); MEAN CORPUSCULAR HGB CONC 32.7 g/dl (32.0-37.0); MEAN CORPUSCULAR VOLUME 78.7 fl (82.0-101.0); MEAN PLATELET VOLUME 9.2 fl (7.4-10.4); MONOCYTE # 0.2 10^3/ul (0.3-0.9); MONOCYTES % 1.5 % (0.0-11.0); NEUTROPHIL # 14.1 10^3/ul (1.6-7.5); NEUTROPHILS % 93.1 % (39.0-77.0); PLATELET COUNT 456 10^3/UL (140-415); RED BLOOD COUNT 3.34 10^6/ul (4.20-5.40); RED CELL DISTRIBUTION WIDTH 19.2 % (11.5-14.5)
[2017-11-28 06:59] LABS: ANION GAP 14 (8-16); BLOOD UREA NITROGEN 8 mg/dl (7-20); CALCIUM 8.3 mg/dl (8.4-10.2); CARBON DIOXIDE 29 mmol/L (21-31); CHLORIDE 104 mmol/L (97-110); CREATININE 0.45 mg/dl (0.44-1.00); GLUCOSE 134 mg/dl (70-220); POTASSIUM 3.2 mmol/L (3.5-5.1); SODIUM 144 mmol/L (135-144)
[2017-11-28] MEDS: NAPROXEN 500 MG TAB PO ×2 (09:00→21:02)
[2017-11-28] MEDS: DEXTROSE 5%-0.9% NACL 1,000 ML IV ×2 (09:17→22:20)
[2017-11-28] MEDS: NYSTATIN SUSP 5 ML CUP PO ×4 (09:17→21:02)
[2017-11-28] MEDS: ENOXAPARIN 40 MG/0.4 ML SYG SC (09:25)
[2017-11-28] MEDS: METHYLPREDNISOLONE 40 MG INJ IV (09:25)
[2017-11-28] MEDS: FAMOTIDINE 20 MG INJ IV (09:26)
[2017-11-28] MEDS: PIPER-TAZO 3.375 GM IV (PMX) 100 ML IVPB ×2 (09:26→15:50)
[2017-11-28] MEDS: SOD CHLORIDE 0.9% 500 ML IV (13:57)
[2017-11-28] MEDS: POTASSIUM CHLORIDE 100 ML IVPB (14:43)
[2017-11-28 15:15] LABS: LACTIC ACID 1.2 mmol/L (0.5-2.0)
[2017-11-28] MEDS ORDERED: METHYLPREDNISOLONE 125 MG INJ IV (16:00)
[2017-11-28] MEDS: POTASSIUM CHLORIDE (SR) 20 MEQ TAB PO (17:41)
[2017-11-28] MEDS: FLUCONAZOLE 200 MG/NS (PMX) 100 ML IVPB (17:42)
[2017-11-28] MEDS: PANTOPRAZOLE 40 MG INJ IV (17:50)
[2017-11-28] MEDS: SOD FERRIC GLUC COMPLX 125 MG in SOD CHLORIDE 0.9% 100 ML IVPB (17:50)
[2017-11-28 20:18] LABS: LACTATE DEHYDROGENASE 995 IU/L (313-618)
[2017-11-28] MEDS: METHYLPREDNISOLONE 125 MG INJ IV (21:03)
[2017-11-29] MEDS: PIPER-TAZO 3.375 GM IV (PMX) 100 ML IVPB ×4 (00:01→21:09)
[2017-11-29 05:37] LABS: ADD MAN DIFF? NO
[2017-11-29 05:39] LABS: WHITE BLOOD COUNT 15.5 10^3/ul (4.8-10.8)
[2017-11-29 05:39] LABS: BASOPHILS % 0.1 % (0.0-2.0); HEMATOCRIT 22.5 % (37.0-47.0); HEMOGLOBIN 7.2 g/dl (12.0-16.0); LYMPHOCYTES # 0.8 10^3/ul (0.8-2.9); LYMPHOCYTES % 5.2 % (15.0-51.0); MEAN CORPUSCULAR HEMOGLOBIN 25.4 pg (29.0-33.0); MEAN CORPUSCULAR VOLUME 79.5 fl (82.0-101.0); MEAN PLATELET VOLUME 9.7 fl (7.4-10.4); MONOCYTE # 0.3 10^3/ul (0.3-0.9); MONOCYTES % 1.8 % (0.0-11.0); NEUTROPHIL # 14.3 10^3/ul (1.6-7.5); NEUTROPHILS % 92.1 % (39.0-77.0); PLATELET COUNT 466 10^3/UL (140-415); RED BLOOD COUNT 2.83 10^6/ul (4.20-5.40); RED CELL DISTRIBUTION WIDTH 19.4 % (11.5-14.5)
[2017-11-29 05:50] LABS: ANION GAP 16 (8-16); BLOOD UREA NITROGEN 12 mg/dl (7-20); CALCIUM 8.1 mg/dl (8.4-10.2); CARBON DIOXIDE 23 mmol/L (21-31); CHLORIDE 110 mmol/L (97-110); CREATININE 0.64 mg/dl (0.44-1.00); GLUCOSE 138 mg/dl (70-220); POTASSIUM 3.5 mmol/L (3.5-5.1); SODIUM 145 mmol/L (135-144)
[2017-11-29] MEDS: PANTOPRAZOLE 40 MG INJ IV ×2 (05:53→17:23)
[2017-11-29] MEDS: VANCOMYCIN 750 MG in DEXTROSE 5% 150 ML IVPB (05:53)
[2017-11-29 05:56] LABS: VANCOMYCIN,TROUGH 16.4 ug/ml (10.0-20.0)
[2017-11-29 05:58] LABS: LACTIC ACID 4.3 mmol/L (0.5-2.0)
[2017-11-29] MEDS: SOD CHLORIDE 0.9% 500 ML IV (07:00)
[2017-11-29] MEDS: METHYLPREDNISOLONE 125 MG INJ IV ×2 (08:13→20:06)
[2017-11-29] MEDS: NAPROXEN 500 MG TAB PO ×2 (08:15→21:07)
[2017-11-29] MEDS: NYSTATIN SUSP 5 ML CUP PO ×4 (08:15→21:07)
[2017-11-29] MEDS: ENOXAPARIN 40 MG/0.4 ML SYG SC (09:00)
[2017-11-29] MEDS: FLUDROCORTISONE 0.1 MG TAB PO (11:31)
[2017-11-29] MEDS: DEXTROSE 5%-0.9% NACL 1,000 ML IV ×2 (11:40→13:51)
[2017-11-29] MEDS: VANCOMYCIN 500MG/NS (PMX) 100 ML IVPB ×2 (12:39→20:55)
[2017-11-29] MEDS: SOD FERRIC GLUC COMPLX 125 MG in SOD CHLORIDE 0.9% 100 ML IVPB (16:02)
[2017-11-29] MEDS: FLUCONAZOLE 200 MG/NS (PMX) 100 ML IVPB (17:24)
[2017-11-29 19:20] LABS: TROPONIN-I < 0.012 ng/ml (0.00-0.12)
[2017-11-30 01:08] LABS: TROPONIN-I < 0.012 ng/ml (0.00-0.12)
[2017-11-30] MEDS: VANCOMYCIN 500MG/NS (PMX) 100 ML IVPB (04:32)
[2017-11-30 05:17] LABS: ADD MAN DIFF? NO
[2017-11-30 05:25] LABS: BASOPHILS % 0.1 % (0.0-2.0); HEMATOCRIT 22.8 % (37.0-47.0); HEMOGLOBIN 7.3 g/dl (12.0-16.0); LYMPHOCYTES # 0.9 10^3/ul (0.8-2.9); LYMPHOCYTES % 9.3 % (15.0-51.0); MEAN CORPUSCULAR HEMOGLOBIN 25.3 pg (29.0-33.0); MEAN CORPUSCULAR VOLUME 79.2 fl (82.0-101.0); MEAN PLATELET VOLUME 9.7 fl (7.4-10.4); MONOCYTE # 0.3 10^3/ul (0.3-0.9); MONOCYTES % 3.6 % (0.0-11.0); NEUTROPHIL # 7.9 10^3/ul (1.6-7.5); NEUTROPHILS % 86.3 % (39.0-77.0); PLATELET COUNT 528 10^3/UL (140-415); RED BLOOD COUNT 2.88 10^6/ul (4.20-5.40); RED CELL DISTRIBUTION WIDTH 19.6 % (11.5-14.5)
[2017-11-30 05:25] LABS: WHITE BLOOD COUNT 9.1 10^3/ul (4.8-10.8)
[2017-11-30] MEDS: PANTOPRAZOLE 40 MG INJ IV ×2 (06:08→16:58)
[2017-11-30 06:13] LABS: ALANINE AMINOTRANSFERASE 22 IU/L (13-69); ALBUMIN 2.5 g/dl (3.3-4.9); ALBUMIN/GLOBULIN RATIO 0.69; ALKALINE PHOSPHATASE 87 IU/L (42-121); ANION GAP 15 (8-16); ASPARTATE AMINO TRANSFERASE 46 IU/L (15-46); BLOOD UREA NITROGEN 14 mg/dl (7-20); CALCIUM 8.3 mg/dl (8.4-10.2); CARBON DIOXIDE 25 mmol/L (21-31); CHLORIDE 109 mmol/L (97-110); CREATININE 0.65 mg/dl (0.44-1.00); GLUCOSE 139 mg/dl (70-220); POTASSIUM 3.3 mmol/L (3.5-5.1); SODIUM 146 mmol/L (135-144); TOTAL PROTEIN 6.1 g/dl (6.1-8.1)
[2017-11-30 06:21] LABS: PHOSPHORUS 2.4 mg/dl (2.5-4.9)
[2017-11-30 06:21] LABS: MAGNESIUM 2.1 mg/dl (1.7-2.5)
[2017-11-30] MEDS: PIPER-TAZO 3.375 GM IV (PMX) 100 ML IVPB (06:25)
[2017-11-30] MEDS: NAPROXEN 500 MG TAB PO ×2 (09:00→21:29)
[2017-11-30] MEDS: NYSTATIN SUSP 5 ML CUP PO ×4 (09:22→21:29)
[2017-11-30] MEDS: METHYLPREDNISOLONE 125 MG INJ IV ×2 (09:22→21:29)
[2017-11-30] MEDS: LIDOCAINE 1% (MDV) 20 ML INJ ×2 (11:35→12:06)
[2017-11-30] MEDS: FLUDROCORTISONE 0.1 MG TAB PO (12:52)
[2017-11-30] MEDS: POTASSIUM PHOSPHATE 20 MEQ in SOD CHLORIDE 0.9% 250 ML IVPB (12:53)
[2017-11-30 14:06] LABS: OCCULT BLOOD STOOL NEGATIVE (NEGATIVE)
[2017-11-30] MEDS: FLUCONAZOLE 200 MG/NS (PMX) 100 ML IVPB (16:59)
[2017-11-30] MEDS: SOD FERRIC GLUC COMPLX 125 MG in SOD CHLORIDE 0.9% 100 ML IVPB (16:59)
[2017-12-01] MEDS: PANTOPRAZOLE 40 MG INJ IV ×2 (05:24→17:33)
[2017-12-01] MEDS: NAPROXEN 500 MG TAB PO ×2 (08:24→21:41)
[2017-12-01] MEDS: METHYLPREDNISOLONE 125 MG INJ IV ×2 (08:24→21:41)
[2017-12-01] MEDS: NYSTATIN SUSP 5 ML CUP PO ×4 (08:24→21:41)
[2017-12-01] MEDS: FLUDROCORTISONE 0.1 MG TAB PO (08:24)
[2017-12-01 08:54] LABS: ADD MAN DIFF? NO
[2017-12-01 09:00] LABS: WHITE BLOOD COUNT 13.9 10^3/ul (4.8-10.8)
[2017-12-01 09:00] LABS: BASOPHILS % 0.1 % (0.0-2.0); HEMATOCRIT 25.4 % (37.0-47.0); LYMPHOCYTES # 1.4 10^3/ul (0.8-2.9); LYMPHOCYTES % 9.7 % (15.0-51.0); MEAN CORPUSCULAR HEMOGLOBIN 24.7 pg (29.0-33.0); MEAN CORPUSCULAR HGB CONC 31.5 g/dl (32.0-37.0); MEAN CORPUSCULAR VOLUME 78.4 fl (82.0-101.0); MEAN PLATELET VOLUME 9.5 fl (7.4-10.4); MONOCYTE # 0.4 10^3/ul (0.3-0.9); MONOCYTES % 2.6 % (0.0-11.0); NEUTROPHIL # 12.1 10^3/ul (1.6-7.5); NEUTROPHILS % 86.8 % (39.0-77.0); PLATELET COUNT 625 10^3/UL (140-415); RED BLOOD COUNT 3.24 10^6/ul (4.20-5.40); RED CELL DISTRIBUTION WIDTH 19.9 % (11.5-14.5)
[2017-12-01] MEDS: INFLUENZA VIRUS VACCINE 0.5 ML (DISPENSING) IM* (09:00)
[2017-12-01 09:18] LABS: MAGNESIUM 1.8 mg/dl (1.7-2.5)
[2017-12-01 09:18] LABS: PHOSPHORUS 2.9 mg/dl (2.5-4.9)
[2017-12-01 09:19] LABS: ANION GAP 14 (8-16); BLOOD UREA NITROGEN 12 mg/dl (7-20); CALCIUM 8.5 mg/dl (8.4-10.2); CARBON DIOXIDE 28 mmol/L (21-31); CHLORIDE 104 mmol/L (97-110); CREATININE 0.61 mg/dl (0.44-1.00); GLUCOSE 143 mg/dl (70-220); SODIUM 143 mmol/L (135-144)
[2017-12-01 09:22] LABS: POTASSIUM 2.6 mmol/L (3.5-5.1)
[2017-12-01] MEDS: POTASSIUM CHLORIDE (SR) 20 MEQ TAB PO ×2 (10:37→12:16)
[2017-12-01 12:06] LABS: ASO TITER 172 IU/mL (<200); NIL 0.02 IU/mL; NIL 0.03 IU/mL; QUANTIFERON(R)-TB GOLD INDETERMINATE (NEGATIVE); TB-NIL 0.01 IU/mL; TB-NIL <0.00 IU/mL
[2017-12-01] MEDS: FLUCONAZOLE 200 MG/NS (PMX) 100 ML IVPB (17:33)
[2017-12-01 18:02] LABS: POTASSIUM 3.2 mmol/L (3.5-5.1)
[2017-12-02 05:30] LABS: ADD MAN DIFF? NO
[2017-12-02 05:37] LABS: WHITE BLOOD COUNT 22.3 10^3/ul (4.8-10.8)
[2017-12-02 05:37] LABS: ABNORMAL IP MESSAGE 1; BASOPHILS % 0.1 % (0.0-2.0); HEMATOCRIT 25.7 % (37.0-47.0); HEMOGLOBIN 8.2 g/dl (12.0-16.0); LYMPHOCYTES # 1.1 10^3/ul (0.8-2.9); MEAN CORPUSCULAR HEMOGLOBIN 25.2 pg (29.0-33.0); MEAN CORPUSCULAR HGB CONC 31.9 g/dl (32.0-37.0); MEAN CORPUSCULAR VOLUME 79.1 fl (82.0-101.0); MEAN PLATELET VOLUME 9.5 fl (7.4-10.4); MONOCYTE # 0.4 10^3/ul (0.3-0.9); NEUTROPHIL # 20.5 10^3/ul (1.6-7.5); NEUTROPHILS % 91.9 % (39.0-77.0); PLATELET COUNT 660 10^3/UL (140-415); RED BLOOD COUNT 3.25 10^6/ul (4.20-5.40); RED CELL DISTRIBUTION WIDTH 19.9 % (11.5-14.5)
[2017-12-02 05:41] LABS: POSITIVE DIFF @See below
[2017-12-02] MEDS: PANTOPRAZOLE 40 MG INJ IV ×2 (05:51→17:02)
[2017-12-02 06:10] LABS: ANION GAP 17 (8-16); BLOOD UREA NITROGEN 15 mg/dl (7-20); CALCIUM 8.7 mg/dl (8.4-10.2); CARBON DIOXIDE 30 mmol/L (21-31); CHLORIDE 103 mmol/L (97-110); CREATININE 0.59 mg/dl (0.44-1.00); GLUCOSE 124 mg/dl (70-220); POTASSIUM 3.9 mmol/L (3.5-5.1); SODIUM 146 mmol/L (135-144)
[2017-12-02 06:30] LABS: MAGNESIUM 1.9 mg/dl (1.7-2.5)
[2017-12-02 06:30] LABS: PHOSPHORUS 3.1 mg/dl (2.5-4.9)
[2017-12-02] MEDS: NYSTATIN SUSP 5 ML CUP PO ×4 (09:02→21:10)
[2017-12-02] MEDS: METHYLPREDNISOLONE 125 MG INJ IV (09:02)
[2017-12-02] MEDS: FLUDROCORTISONE 0.1 MG TAB PO (09:02)
[2017-12-02] MEDS: NAPROXEN 500 MG TAB PO ×2 (09:02→21:10)
[2017-12-02] MEDS: FLUCONAZOLE 200 MG/NS (PMX) 100 ML IVPB (17:02)
[2017-12-02] MEDS: FERROUS SULFATE (EC) 325 MG TAB PO (21:10)
[2017-12-03 05:09] LABS: ADD MAN DIFF? NO
[2017-12-03 05:20] LABS: WHITE BLOOD COUNT 30.1 10^3/ul (4.8-10.8)
[2017-12-03 05:20] LABS: ABNORMAL IP MESSAGE 1; BASOPHILS % 0.1 % (0.0-2.0); HEMATOCRIT 23.6 % (37.0-47.0); HEMOGLOBIN 7.7 g/dl (12.0-16.0); LYMPHOCYTES # 1.7 10^3/ul (0.8-2.9); LYMPHOCYTES % 5.6 % (15.0-51.0); MEAN CORPUSCULAR HEMOGLOBIN 25.8 pg (29.0-33.0); MEAN CORPUSCULAR HGB CONC 32.6 g/dl (32.0-37.0); MEAN CORPUSCULAR VOLUME 78.9 fl (82.0-101.0); MEAN PLATELET VOLUME 9.5 fl (7.4-10.4); MONOCYTE # 0.9 10^3/ul (0.3-0.9); NEUTROPHIL # 27.1 10^3/ul (1.6-7.5); NEUTROPHILS % 90.2 % (39.0-77.0); PLATELET COUNT 670 10^3/UL (140-415); RED BLOOD COUNT 2.99 10^6/ul (4.20-5.40); RED CELL DISTRIBUTION WIDTH 20.1 % (11.5-14.5)
[2017-12-03 05:27] LABS: POSITIVE DIFF @See below
[2017-12-03 05:47] LABS: PHOSPHORUS 2.9 mg/dl (2.5-4.9)
[2017-12-03 05:50] LABS: ANION GAP 16 (8-16); BLOOD UREA NITROGEN 16 mg/dl (7-20); CALCIUM 8.5 mg/dl (8.4-10.2); CARBON DIOXIDE 31 mmol/L (21-31); CHLORIDE 103 mmol/L (97-110); GLUCOSE 104 mg/dl (70-220); POTASSIUM 3.7 mmol/L (3.5-5.1); SODIUM 146 mmol/L (135-144)
[2017-12-03] MEDS: PANTOPRAZOLE 40 MG INJ IV ×2 (05:51→17:23)
[2017-12-03] MEDS: NYSTATIN SUSP 5 ML CUP PO ×4 (08:16→21:30)
[2017-12-03] MEDS: predniSONE 20 MG TAB PO (08:17)
[2017-12-03] MEDS: NAPROXEN 500 MG TAB PO ×2 (08:17→21:30)
[2017-12-03] MEDS: FERROUS SULFATE (EC) 325 MG TAB PO ×2 (08:17→21:30)
[2017-12-03] MEDS: FLUDROCORTISONE 0.1 MG TAB PO (08:17)
[2017-12-03] MEDS: FLUCONAZOLE 100 MG TAB PO (17:24)
[2017-12-04 05:06] LABS: ADD MAN DIFF? NO
[2017-12-04 05:13] LABS: ABNORMAL IP MESSAGE 1; BASOPHILS % 0.1 % (0.0-2.0); EOSINOPHILS % 0.2 % (0.0-7.0); HEMATOCRIT 23.6 % (37.0-47.0); HEMOGLOBIN 7.6 g/dl (12.0-16.0); LYMPHOCYTES # 2.2 10^3/ul (0.8-2.9); LYMPHOCYTES % 8.4 % (15.0-51.0); MEAN CORPUSCULAR HEMOGLOBIN 25.8 pg (29.0-33.0); MEAN CORPUSCULAR HGB CONC 32.2 g/dl (32.0-37.0); MEAN PLATELET VOLUME 9.3 fl (7.4-10.4); MONOCYTE # 0.6 10^3/ul (0.3-0.9); MONOCYTES % 2.5 % (0.0-11.0); NEUTROPHIL # 22.1 10^3/ul (1.6-7.5); NEUTROPHILS % 86.3 % (39.0-77.0); PLATELET COUNT 655 10^3/UL (140-415); RED BLOOD COUNT 2.95 10^6/ul (4.20-5.40); RED CELL DISTRIBUTION WIDTH 20.9 % (11.5-14.5)
[2017-12-04 05:13] LABS: WHITE BLOOD COUNT 25.6 10^3/ul (4.8-10.8)
[2017-12-04 05:14] LABS: POSITIVE DIFF @See below
[2017-12-04 05:34] LABS: PHOSPHORUS 2.4 mg/dl (2.5-4.9)
[2017-12-04 05:34] LABS: MAGNESIUM 2.1 mg/dl (1.7-2.5)
[2017-12-04 05:35] LABS: ANION GAP 10 (8-16); BLOOD UREA NITROGEN 18 mg/dl (7-20); CALCIUM 8.1 mg/dl (8.4-10.2); CARBON DIOXIDE 35 mmol/L (21-31); CHLORIDE 101 mmol/L (97-110); GLUCOSE 79 mg/dl (70-220); SODIUM 143 mmol/L (135-144)
[2017-12-04 05:36] LABS: POTASSIUM 2.6 mmol/L (3.5-5.1)
[2017-12-04] MEDS: PANTOPRAZOLE 40 MG INJ IV ×2 (05:44→17:48)
[2017-12-04] MEDS: POTASSIUM CHLORIDE (SR) 20 MEQ TAB PO ×3 (08:23→17:48)
[2017-12-04] MEDS: NYSTATIN SUSP 5 ML CUP PO ×5 (08:23→21:17)
[2017-12-04] MEDS: NAPROXEN 500 MG TAB PO ×3 (08:23→21:16)
[2017-12-04] MEDS: FLUDROCORTISONE 0.1 MG TAB PO (08:23)
[2017-12-04] MEDS: FERROUS SULFATE (EC) 325 MG TAB PO ×2 (08:23→21:16)
[2017-12-04] MEDS: predniSONE 20 MG TAB PO (11:14)
[2017-12-04 15:11] LABS: HEMOGLOBIN 8.4 g/dl (12.0-16.0)
[2017-12-04 15:58] LABS: POTASSIUM 3.2 mmol/L (3.5-5.1)
[2017-12-04] MEDS: CYANOCOBALAMIN 1000 MCG INJ IM (16:54)
[2017-12-04] MEDS: FLUCONAZOLE 100 MG TAB PO (17:48)
[2017-12-04] MEDS: AMOXICILLIN/CLAV 875 MG TAB PO (17:48)
[2017-12-05] MEDS: AMOXICILLIN/CLAV 875 MG TAB PO ×2 (00:21→08:55)
[2017-12-05 06:00] LABS: ADD MAN DIFF? NO
[2017-12-05 06:07] LABS: ABNORMAL IP MESSAGE 1; BASOPHIL # 0.1 10^3/ul (0.0-0.1); BASOPHILS % 0.2 % (0.0-2.0); EOSINOPHILS % 0.1 % (0.0-7.0); HEMATOCRIT 25.5 % (37.0-47.0); HEMOGLOBIN 8.1 g/dl (12.0-16.0); LYMPHOCYTES # 1.6 10^3/ul (0.8-2.9); LYMPHOCYTES % 5.3 % (15.0-51.0); MEAN CORPUSCULAR HGB CONC 31.8 g/dl (32.0-37.0); MEAN PLATELET VOLUME 9.2 fl (7.4-10.4); MONOCYTE # 0.3 10^3/ul (0.3-0.9); NEUTROPHIL # 26.9 10^3/ul (1.6-7.5); NEUTROPHILS % 91.3 % (39.0-77.0); PLATELET COUNT 617 10^3/UL (140-415); RED BLOOD COUNT 3.11 10^6/ul (4.20-5.40); RED CELL DISTRIBUTION WIDTH 21.9 % (11.5-14.5)
[2017-12-05 06:07] LABS: WHITE BLOOD COUNT 29.5 10^3/ul (4.8-10.8)
[2017-12-05 06:18] LABS: POSITIVE DIFF @See below
[2017-12-05 06:22] LABS: ANION GAP 14 (8-16); BLOOD UREA NITROGEN 17 mg/dl (7-20); CALCIUM 8.4 mg/dl (8.4-10.2); CARBON DIOXIDE 32 mmol/L (21-31); CHLORIDE 104 mmol/L (97-110); CREATININE 0.57 mg/dl (0.44-1.00); GLUCOSE 101 mg/dl (70-220); POTASSIUM 4.7 mmol/L (3.5-5.1); SODIUM 145 mmol/L (135-144)
[2017-12-05] MEDS: PANTOPRAZOLE 40 MG INJ IV (06:46)
[2017-12-05] MEDS: FLUDROCORTISONE 0.1 MG TAB PO (08:55)
[2017-12-05] MEDS: FERROUS SULFATE (EC) 325 MG TAB PO (08:55)
[2017-12-05] MEDS: predniSONE 20 MG TAB PO (08:55)
[2017-12-05] MEDS: CYANOCOBALAMIN 1000 MCG INJ IM (08:55)
[2017-12-05] MEDS: NAPROXEN 500 MG TAB PO (08:55)
[2017-12-05] MEDS: NYSTATIN SUSP 5 ML CUP PO (08:55)
== END 2017-12-05 14:15 | disposition home or self-care (01) | DRG 854 ==
LOC: MS3 12-01 08:34 → MS2 12-05 02:44 → MS3 11-26 15:29 → E/R 21:37 → MS3 11-26 04:47
PROC: 07B63ZX Excision of Left Axillary Lymphatic, Percutaneous Approach, Diagnostic (ICD-10-PCS; principal; 2017-11-30)
DX: A41.9 Sepsis, unspecified organism (principal); E87.0 Hyperosmolality and hypernatremia; M06.1 Adult-onset Still's disease; E83.42 Hypomagnesemia; R59.1 Generalized enlarged lymph nodes; D64.9 Anemia, unspecified; E87.6 Hypokalemia; I10 Essential (primary) hypertension; J02.9 Acute pharyngitis, unspecified; M79.1 Myalgia; M54.2 Cervicalgia
CPT/HCPCS: 36415; 70490; 71045; 71275; 76942; 80048; 80053; 80202; 81001; 82270; 82728; 82962; 83605; 83615; 83735; 84100; 84132; 84443; 84484; 85018; 85025; 85610; 85651; 85730; 86060; 86140; 86480; 87040; 87070; 87075; 87086; 87102; 87116; 87220; 87400; 88309; 88312; 88313; 92526; 92610; 93005; 93308; 96374; 96375; 99291-25

== ENCOUNTER 2017-12-31 20:32 | Emergency (ER) | payer MEDICAID ==
[2018-01-01 01:29] LABS: WHITE BLOOD COUNT 14.4 10^3/ul (4.8-10.8)
[2018-01-01 01:29] LABS: ABNORMAL IP MESSAGE 1; HEMATOCRIT 37.6 % (37.0-47.0); MEAN CORPUSCULAR HEMOGLOBIN 26.5 pg (29.0-33.0); MEAN CORPUSCULAR HGB CONC 31.9 g/dl (32.0-37.0); MEAN CORPUSCULAR VOLUME 83.2 fl (82.0-101.0); MEAN PLATELET VOLUME 9.1 fl (7.4-10.4); PLATELET COUNT 275 10^3/UL (140-415); RED BLOOD COUNT 4.52 10^6/ul (4.20-5.40); RED CELL DISTRIBUTION WIDTH 23.6 % (11.5-14.5)
[2018-01-01 01:35] LABS: URINE BLOOD (Dip) POC 1+ (NEGATIVE); URINE GLUCOSE (Dip) POC Negative (NEGATIVE); URINE KETONES (Dip) POC Negative (NEGATIVE); URINE LEUKOCYTE EST (Dip) POC Trace (NEGATIVE); URINE NITRITE (Dip) POC Negative (NEGATIVE); URINE TOTAL PROTEIN POC 1+ (NEGATIVE)
[2018-01-01 01:36] LABS: ADD MAN DIFF? YES; POSITIVE DIFF @See below
[2018-01-01 01:50] LABS: ALANINE AMINOTRANSFERASE 24 IU/L (13-69); ALBUMIN 3.9 g/dl (3.3-4.9); ALBUMIN/GLOBULIN RATIO 0.95; ALKALINE PHOSPHATASE 97 IU/L (42-121); ANION GAP 16 (8-16); ASPARTATE AMINO TRANSFERASE 45 IU/L (15-46); BLOOD UREA NITROGEN 16 mg/dl (7-20); CALCIUM 9.2 mg/dl (8.4-10.2); CARBON DIOXIDE 29 mmol/L (21-31); CHLORIDE 100 mmol/L (97-110); CREATININE 0.61 mg/dl (0.44-1.00); GLUCOSE 145 mg/dl (70-220); MAGNESIUM 2.2 mg/dl (1.7-2.5); SODIUM 141 mmol/L (135-144)
[2018-01-01 01:58] LABS: B-TYPE NATRIURETIC PEPTIDE 58 PG/ML (0-125)
[2018-01-01 02:04] LABS: ANISOCYTOSIS 2+ (0-0); BAND NEUTROPHILS #M 0.7 10^3/ul (0.0-0.6); BAND NEUTROPHILS % (M) 5 % (0-4); GIANT THROMBO% (M) 2 % (0-0); LYMPHOCYTES #M 1.5 10^3/ul (0.8-2.9); LYMPHOCYTES % (M) 11 % (15-51); MICROCYTOSIS 2+ (0-0); MYELOCYTES #M 0.5 10^3/ul (0.0-0.0); MYELOCYTES % (M) 4 % (0-0); PLATELET ESTIMATE NORMAL; POLYCHROMASIA 3+ (0-0); PROMYELOCYTES #M 0.2 10^3/ul (0-0); PROMYELOCYTES % (M) 2 % (0-0); SEG NEUT #M 11.3 10^3/ul (1.6-7.5); SEGMENTED NEUTROPHILS (M) % 78 % (39-77)
[2018-01-01] MEDS: VANCOMYCIN 1 GM (PMX) 250 ML IVPB (03:55)
[2018-01-01] MEDS: SODIUM CHLORIDE 0.9% 1L BAG IV* (03:55)
[2018-01-01] MEDS: CEFEPIME 2GM/50 ML (PMX) 50 ML IVPB (03:55)
[2018-01-01 04:06] LABS: LACTIC ACID 1.6 mmol/L (0.5-2.0)
[2018-01-01 04:49] LABS: ADD UMIC YES; UR ASCORBIC ACID NEGATIVE (NEGATIVE); UR BILIRUBIN (Dip) NEGATIVE (NEGATIVE); UR BLOOD (Dip) 1+ mg/dL (NEGATIVE); UR CLARITY CLEAR (CLEAR); UR COLOR YELLOW (YELLOW); UR GLUCOSE (Dip) NEGATIVE (NEGATIVE); UR KETONES (Dip) NEGATIVE (NEGATIVE); UR LEUKOCYTE ESTERASE (Dip) TRACE Leu/ul (NEGATIVE); UR NITRITE (Dip) NEGATIVE (NEGATIVE); UR RBC 3 /HPF (0-5); UR SPECIFIC GRAVITY (Dip) 1.012 (1.003-1.030); UR TOTAL PROTEIN (Dip) NEGATIVE (NEGATIVE); UR UROBILINOGEN (Dip) NEGATIVE (NEGATIVE); UR WBC 1 /HPF (0-5)
[2018-01-01] MEDS: KETOROLAC 30 MG INJ IV (06:15)
== END 2018-01-01 07:12 | disposition home or self-care (01) ==
LOC: FTE 20:32 → E/R 01-01 07:12
DX: J20.9 Acute bronchitis, unspecified (principal); R00.2 Palpitations
CPT/HCPCS: 36415; 71046; 80053; 81001; 81003; 83605; 83735; 83880; 84443; 85025; 87040; 87070; 87086; 93005; 96374; 96375; 99285-25

== ENCOUNTER 2018-01-01 22:29 | Inpatient (IN) | payer MEDICAID ==
[2018-01-02 01:17] LABS: URINE BLOOD (Dip) POC Trace-lysed (NEGATIVE); URINE GLUCOSE (Dip) POC Negative (NEGATIVE); URINE KETONES (Dip) POC Negative (NEGATIVE); URINE LEUKOCYTE EST (Dip) POC Negative (NEGATIVE); URINE NITRITE (Dip) POC Negative (NEGATIVE); URINE TOTAL PROTEIN POC Trace (NEGATIVE)
[2018-01-02 01:38] LABS: ABNORMAL IP MESSAGE 1; HEMATOCRIT 32.4 % (37.0-47.0); HEMOGLOBIN 10.4 g/dl (12.0-16.0); MEAN CORPUSCULAR HEMOGLOBIN 26.4 pg (29.0-33.0); MEAN CORPUSCULAR HGB CONC 32.1 g/dl (32.0-37.0); MEAN CORPUSCULAR VOLUME 82.2 fl (82.0-101.0); MEAN PLATELET VOLUME 8.8 fl (7.4-10.4); PLATELET COUNT 236 10^3/UL (140-415); RED BLOOD COUNT 3.94 10^6/ul (4.20-5.40); RED CELL DISTRIBUTION WIDTH 22.7 % (11.5-14.5)
[2018-01-02 01:38] LABS: WHITE BLOOD COUNT 16.1 10^3/ul (4.8-10.8)
[2018-01-02] MEDS: SOD CHLORIDE 0.9% IV (01:38)
[2018-01-02 01:40] LABS: POSITIVE DIFF @See below
[2018-01-02 01:41] LABS: ADD MAN DIFF? YES
[2018-01-02 02:02] LABS: ALANINE AMINOTRANSFERASE 24 IU/L (13-69); ALBUMIN 2.9 g/dl (3.3-4.9); ALBUMIN/GLOBULIN RATIO 0.93; ALKALINE PHOSPHATASE 80 IU/L (42-121); ANION GAP 14 (8-16); ASPARTATE AMINO TRANSFERASE 40 IU/L (15-46); BLOOD UREA NITROGEN 15 mg/dl (7-20); CALCIUM 8.4 mg/dl (8.4-10.2); CARBON DIOXIDE 25 mmol/L (21-31); CHLORIDE 102 mmol/L (97-110); CREATININE 0.68 mg/dl (0.44-1.00); GLUCOSE 144 mg/dl (70-220); POTASSIUM 3.9 mmol/L (3.5-5.1); SODIUM 137 mmol/L (135-144)
[2018-01-02 02:07] LABS: INR 1.27; PROTIME 16.1 Sec (11.9-14.9); PT RATIO 1.3
[2018-01-02 02:08] LABS: PARTIAL THROMBOPLASTIN TIME 39.5 Sec (25.0-35.0)
[2018-01-02 02:19] LABS: TROPONIN-I < 0.012 ng/ml (0.00-0.12)
[2018-01-02 02:19] LABS: LACTIC ACID 1.7 mmol/L (0.5-2.0)
[2018-01-02 02:33] LABS: ANISOCYTOSIS 2+ (0-0); BAND NEUTROPHILS #M 1.6 10^3/ul (0.0-0.6); BAND NEUTROPHILS % (M) 10 % (0-4); LYMPHOCYTES #M 1.1 10^3/ul (0.8-2.9); LYMPHOCYTES % (M) 7 % (15-51); MICROCYTOSIS 1+ (0-0); MONOCYTE #M 0.3 10^3/ul (0.3-0.9); MONOCYTES % (M) 2 % (0-11); PLATELET ESTIMATE NORMAL; SEG NEUT #M 13.3 10^3/ul (1.6-7.5); SEGMENTED NEUTROPHILS (M) % 81 % (39-77); SMUDGE%M 4 % (0-0); STOMATOCYTES 1+ (0-0); TEAR DROP CELLS 1+ (0-0)
[2018-01-02] MEDS: CEFEPIME 1GM/50 ML (PMX) 50 ML IVPB (03:19)
[2018-01-02] MEDS: SOD CHLORIDE 0.9% 1,000 ML IV ×4 (03:19→14:34)
[2018-01-02] MEDS: VANCOMYCIN 1 GM (PMX) 250 ML IVPB (03:47)
[2018-01-02 04:12] LABS: LACTIC ACID 1.3 mmol/L (0.5-2.0)
[2018-01-02 04:13] LABS: MAGNESIUM 1.7 mg/dl (1.7-2.5)
[2018-01-02] MEDS ORDERED: ACETAMINOPHEN 325 MG TAB PO (06:00)
[2018-01-02] MEDS: PIPER-TAZO 3.375 GM IV (PMX) 100 ML IVPB ×3 (06:18→18:25)
[2018-01-02] MEDS: HYDROCORTISONE 100 MG INJ IV (06:18)
[2018-01-02 07:28] LABS: LACTIC ACID 1.1 mmol/L (0.5-2.0)
[2018-01-02] MEDS: ALBUTEROL/IPRATROPIUM (NEB) 3 ML AMP HHN ×3 (08:00→20:00)
[2018-01-02 08:25] LABS: LACTIC ACID 0.9 mmol/L (0.5-2.0)
[2018-01-02] MEDS ORDERED: ALBUTEROL HFA 8 GM INHALER INH (11:30)
[2018-01-02] MEDS ORDERED: IBUPROFEN 600 MG TAB PO (11:30)
[2018-01-02] MEDS: FERROUS SULFATE (EC) 325 MG TAB PO ×2 (12:15→20:59)
[2018-01-02] MEDS: predniSONE 20 MG TAB PO (12:15)
[2018-01-02] MEDS: FOLIC ACID 1 MG TAB PO (12:15)
[2018-01-02] MEDS: PANTOPRAZOLE (EC) 40 MG TAB PO (12:15)
[2018-01-02 12:18] LABS: LACTIC ACID 1.6 mmol/L (0.5-2.0)
[2018-01-02 18:32] LABS: LACTIC ACID 2.6 mmol/L (0.5-2.0)
[2018-01-03] MEDS: PIPER-TAZO 3.375 GM IV (PMX) 100 ML IVPB ×4 (00:26→17:02)
[2018-01-03] MEDS: ALBUTEROL/IPRATROPIUM (NEB) 3 ML AMP HHN ×4 (02:00→20:00)
[2018-01-03] MEDS: PANTOPRAZOLE (EC) 40 MG TAB PO (05:48)
[2018-01-03 06:14] LABS: ADD MAN DIFF? NO
[2018-01-03 06:25] LABS: ABNORMAL IP MESSAGE 1; BASOPHILS % 0.2 % (0.0-2.0); EOSINOPHILS % 0.1 % (0.0-7.0); HEMATOCRIT 27.6 % (37.0-47.0); HEMOGLOBIN 8.8 g/dl (12.0-16.0); LYMPHOCYTES # 1.6 10^3/ul (0.8-2.9); LYMPHOCYTES % 11.6 % (15.0-51.0); MEAN CORPUSCULAR HEMOGLOBIN 26.4 pg (29.0-33.0); MEAN CORPUSCULAR HGB CONC 31.9 g/dl (32.0-37.0); MEAN CORPUSCULAR VOLUME 82.9 fl (82.0-101.0); MEAN PLATELET VOLUME 9.2 fl (7.4-10.4); MONOCYTE # 0.5 10^3/ul (0.3-0.9); MONOCYTES % 3.8 % (0.0-11.0); NEUTROPHIL # 11.6 10^3/ul (1.6-7.5); NEUTROPHILS % 82.5 % (39.0-77.0); PLATELET COUNT 239 10^3/UL (140-415); RED BLOOD COUNT 3.33 10^6/ul (4.20-5.40); RED CELL DISTRIBUTION WIDTH 22.5 % (11.5-14.5)
[2018-01-03 06:25] LABS: WHITE BLOOD COUNT 14.1 10^3/ul (4.8-10.8)
[2018-01-03 06:49] LABS: POSITIVE DIFF @See below
[2018-01-03 06:54] LABS: ALANINE AMINOTRANSFERASE 25 IU/L (13-69); ALBUMIN 2.5 g/dl (3.3-4.9); ALBUMIN/GLOBULIN RATIO 0.86; ALKALINE PHOSPHATASE 58 IU/L (42-121); ANION GAP 11 (8-16); ASPARTATE AMINO TRANSFERASE 27 IU/L (15-46); BILIRUBIN,INDIRECT 0.1 mg/dl (0-1.1); BILIRUBIN,TOTAL 0.1 mg/dl (0.2-1.3); BLOOD UREA NITROGEN 11 mg/dl (7-20); CALCIUM 8.3 mg/dl (8.4-10.2); CARBON DIOXIDE 25 mmol/L (21-31); CHLORIDE 112 mmol/L (97-110); CREATININE 0.58 mg/dl (0.44-1.00); GLUCOSE 111 mg/dl (70-220); POTASSIUM 3.6 mmol/L (3.5-5.1); SODIUM 144 mmol/L (135-144); TOTAL PROTEIN 5.4 g/dl (6.1-8.1)
[2018-01-03] MEDS: FOLIC ACID 1 MG TAB PO (08:11)
[2018-01-03] MEDS: FERROUS SULFATE (EC) 325 MG TAB PO ×2 (08:11→20:23)
[2018-01-03] MEDS: predniSONE 20 MG TAB PO (08:12)
[2018-01-03] MEDS: SOD CHLORIDE 0.9% 1,000 ML IV (11:33)
[2018-01-04] MEDS: PIPER-TAZO 3.375 GM IV (PMX) 100 ML IVPB ×5 (00:31→23:45)
[2018-01-04] MEDS: ALBUTEROL/IPRATROPIUM (NEB) 3 ML AMP HHN ×4 (02:00→20:00)
[2018-01-04] MEDS: SOD CHLORIDE 0.9% 1,000 ML IV ×2 (03:30→11:54)
[2018-01-04] MEDS: PANTOPRAZOLE (EC) 40 MG TAB PO (05:51)
[2018-01-04] MEDS: FOLIC ACID 1 MG TAB PO (11:53)
[2018-01-04] MEDS: FERROUS SULFATE (EC) 325 MG TAB PO ×2 (11:53→20:42)
[2018-01-04] MEDS: predniSONE 20 MG TAB PO (12:30)
[2018-01-05] MEDS: ALBUTEROL/IPRATROPIUM (NEB) 3 ML AMP HHN ×4 (01:27→19:00)
[2018-01-05] MEDS: PIPER-TAZO 3.375 GM IV (PMX) 100 ML IVPB ×2 (05:17→12:57)
[2018-01-05] MEDS: PANTOPRAZOLE (EC) 40 MG TAB PO (05:17)
[2018-01-05] MEDS: FOLIC ACID 1 MG TAB PO (08:30)
[2018-01-05] MEDS: FERROUS SULFATE (EC) 325 MG TAB PO ×2 (08:30→20:09)
[2018-01-05] MEDS: predniSONE 20 MG TAB PO (08:30)
[2018-01-05 09:03] LABS: ADD MAN DIFF? NO
[2018-01-05 09:10] LABS: ABNORMAL IP MESSAGE 1; BASOPHILS % 0.2 % (0.0-2.0); EOSINOPHILS % 0.4 % (0.0-7.0); HEMATOCRIT 30.7 % (37.0-47.0); HEMOGLOBIN 9.9 g/dl (12.0-16.0); LYMPHOCYTES # 2.4 10^3/ul (0.8-2.9); LYMPHOCYTES % 27.9 % (15.0-51.0); MEAN CORPUSCULAR HEMOGLOBIN 26.1 pg (29.0-33.0); MEAN CORPUSCULAR HGB CONC 32.2 g/dl (32.0-37.0); MEAN PLATELET VOLUME 9.3 fl (7.4-10.4); MONOCYTE # 0.5 10^3/ul (0.3-0.9); MONOCYTES % 5.3 % (0.0-11.0); NEUTROPHIL # 5.4 10^3/ul (1.6-7.5); NEUTROPHILS % 63.8 % (39.0-77.0); PLATELET COUNT 360 10^3/UL (140-415); RED BLOOD COUNT 3.79 10^6/ul (4.20-5.40); RED CELL DISTRIBUTION WIDTH 22.7 % (11.5-14.5)
[2018-01-05 09:10] LABS: WHITE BLOOD COUNT 8.5 10^3/ul (4.8-10.8)
[2018-01-05 09:11] LABS: POSITIVE DIFF @See below
[2018-01-05 09:34] LABS: ANION GAP 15 (8-16); BLOOD UREA NITROGEN 15 mg/dl (7-20); CALCIUM 8.7 mg/dl (8.4-10.2); CARBON DIOXIDE 26 mmol/L (21-31); CHLORIDE 105 mmol/L (97-110); GLUCOSE 77 mg/dl (70-220); POTASSIUM 3.2 mmol/L (3.5-5.1); SODIUM 143 mmol/L (135-144)
[2018-01-05 09:35] LABS: PHOSPHORUS 3.3 mg/dl (2.5-4.9)
[2018-01-05 09:35] LABS: MAGNESIUM 1.8 mg/dl (1.7-2.5)
[2018-01-05] MEDS: POTASSIUM CHLORIDE (SR) 20 MEQ TAB PO (16:38)
[2018-01-06] MEDS: ALBUTEROL/IPRATROPIUM (NEB) 3 ML AMP HHN ×2 (02:00→07:56)
[2018-01-06] MEDS: PANTOPRAZOLE (EC) 40 MG TAB PO (06:06)
[2018-01-06 06:28] LABS: ABNORMAL IP MESSAGE 1; HEMATOCRIT 31.1 % (37.0-47.0); HEMOGLOBIN 9.8 g/dl (12.0-16.0); MEAN CORPUSCULAR HEMOGLOBIN 25.9 pg (29.0-33.0); MEAN CORPUSCULAR HGB CONC 31.5 g/dl (32.0-37.0); MEAN CORPUSCULAR VOLUME 82.3 fl (82.0-101.0); MEAN PLATELET VOLUME 8.8 fl (7.4-10.4); PLATELET COUNT 395 10^3/UL (140-415); RED BLOOD COUNT 3.78 10^6/ul (4.20-5.40); RED CELL DISTRIBUTION WIDTH 22.8 % (11.5-14.5)
[2018-01-06 06:28] LABS: WHITE BLOOD COUNT 7.9 10^3/ul (4.8-10.8)
[2018-01-06 06:30] LABS: ADD MAN DIFF? YES; POSITIVE DIFF @See below
[2018-01-06 08:34] LABS: ANISOCYTOSIS 1+ (0-0); GIANT THROMBO% (M) 1 % (0-0); HYPOCHROMASIA 1+ (0-0); LYMPHOCYTES #M 1.5 10^3/ul (0.8-2.9); LYMPHOCYTES % (M) 19 % (15-51); MONOCYTE #M 0.1 10^3/ul (0.3-0.9); MONOCYTES % (M) 2 % (0-11); MYELOCYTES % (M) 1 % (0-0); PLATELET ESTIMATE NORMAL; POLYCHROMASIA 1+ (0-0); PROMYELOCYTES % (M) 1 % (0-0); ROULEAU 1+ (0-0); SEGMENTED NEUTROPHILS (M) % 77 % (39-77); SMUDGE%M 5 % (0-0)
[2018-01-06] MEDS: FERROUS SULFATE (EC) 325 MG TAB PO (12:53)
[2018-01-06] MEDS: FOLIC ACID 1 MG TAB PO (12:53)
[2018-01-06] MEDS: FLUCONAZOLE 100 MG TAB PO (12:53)
[2018-01-06] MEDS: predniSONE 20 MG TAB PO (12:58)
== END 2018-01-06 13:30 | disposition home or self-care (01) | DRG 202 ==
LOC: E/R 22:29 → TEL 01-02 05:09
PROVIDERS: Internal Medicine Nephrology
DX: J20.9 Acute bronchitis, unspecified (principal); R65.10 Systemic inflammatory response syndrome (SIRS) of non-infectious origin without acute organ dysfunction; M06.1 Adult-onset Still's disease; R03.0 Elevated blood-pressure reading, without diagnosis of hypertension; R73.03 Prediabetes; D63.8 Anemia in other chronic diseases classified elsewhere; R84.5 Abnormal microbiological findings in specimens from respiratory organs and thorax
CPT/HCPCS: 36415; 71045; 71250; 80048; 80053; 81003; 83605; 83735; 84100; 84484; 85025; 85610; 85730; 87040; 87070; 87086; 93005; 94640; 94664; 96374; 96375; 99291-25

== ENCOUNTER 2018-04-30 14:38 | Emergency (ER) | payer OTHER ==
[2018-04-30 16:28] LABS: ADD MAN DIFF? NO
[2018-04-30] MEDS: SODIUM CHLORIDE 0.9% 1L BAG IV* (16:34)
[2018-04-30] MEDS: IBUPROFEN 600 MG TAB PO (16:34)
[2018-04-30 16:37] LABS: BASOPHILS % 0.4 % (0.0-2.0); EOSINOPHILS % 0.4 % (0.0-7.0); HEMATOCRIT 41.3 % (37.0-47.0); HEMOGLOBIN 13.7 g/dl (12.0-16.0); IMMATURE GRANS #M 0.05 10^3/ul; IMMATURE GRANS % (M) 0.5 %; LYMPHOCYTES # 1.4 10^3/ul (0.8-2.9); LYMPHOCYTES % 13.4 % (15.0-51.0); MEAN CORPUSCULAR HEMOGLOBIN 29.6 pg (29.0-33.0); MEAN CORPUSCULAR HGB CONC 33.2 g/dl (32.0-37.0); MEAN CORPUSCULAR VOLUME 89.2 fl (82.0-101.0); MEAN PLATELET VOLUME 9.8 fl (7.4-10.4); MONOCYTE # 0.6 10^3/ul (0.3-0.9); NEUTROPHIL # 8.4 10^3/ul (1.6-7.5); NEUTROPHILS % 79.3 % (39.0-77.0); PLATELET COUNT 329 10^3/UL (140-415); RED BLOOD COUNT 4.63 10^6/ul (4.20-5.40); RED CELL DISTRIBUTION WIDTH 16.9 % (11.5-14.5)
[2018-04-30 16:37] LABS: WHITE BLOOD COUNT 10.6 10^3/ul (4.8-10.8)
[2018-04-30 16:53] LABS: LACTIC ACID 1.4 mmol/L (0.5-2.0)
[2018-04-30 16:55] LABS: ALANINE AMINOTRANSFERASE 17 IU/L (13-69); ALBUMIN 4.5 g/dl (3.3-4.9); ALBUMIN/GLOBULIN RATIO 1.18; ALKALINE PHOSPHATASE 69 IU/L (42-121); ANION GAP 16 (8-16); ASPARTATE AMINO TRANSFERASE 27 IU/L (15-46); BILIRUBIN,INDIRECT 0.6 mg/dl (0-1.1); BILIRUBIN,TOTAL 0.6 mg/dl (0.2-1.3); BLOOD UREA NITROGEN 12 mg/dl (7-20); CARBON DIOXIDE 24 mmol/L (21-31); CHLORIDE 105 mmol/L (97-110); CREATININE 0.61 mg/dl (0.44-1.00); GLUCOSE 104 mg/dl (70-220); LIPASE 59 U/L (23-300); POTASSIUM 3.9 mmol/L (3.5-5.1); SODIUM 141 mmol/L (135-144); TOTAL PROTEIN 8.3 g/dl (6.1-8.1)
[2018-04-30 17:06] LABS: TROPONIN-I < 0.010 ng/ml (0.000-0.120)
[2018-04-30 17:28] LABS: INR 1.06; PROTIME 13.9 Sec (11.9-14.9); PT RATIO 1.1
[2018-04-30 17:29] LABS: PARTIAL THROMBOPLASTIN TIME 35.9 Sec (25.0-35.0)
[2018-04-30 18:11] LABS: ADD UMIC YES; UR ASCORBIC ACID NEGATIVE (NEGATIVE); UR BACTERIA FEW /HPF (NONE SEEN); UR BILIRUBIN (Dip) NEGATIVE (NEGATIVE); UR BLOOD (Dip) 2+ mg/dL (NEGATIVE); UR CLARITY CLEAR (CLEAR); UR COLOR STRAW (YELLOW); UR GLUCOSE (Dip) NEGATIVE (NEGATIVE); UR KETONES (Dip) TRACE mg/dL (NEGATIVE); UR LEUKOCYTE ESTERASE (Dip) 1+ Leu/ul (NEGATIVE); UR NITRITE (Dip) NEGATIVE (NEGATIVE); UR RBC 3 /HPF (0-5); UR SPECIFIC GRAVITY (Dip) 1.004 (1.003-1.030); UR TOTAL PROTEIN (Dip) NEGATIVE (NEGATIVE); UR UROBILINOGEN (Dip) NEGATIVE (NEGATIVE); UR WBC 1 /HPF (0-5)
[2018-04-30] MEDS: predniSONE 20 MG TAB PO (18:24)
== END 2018-04-30 18:45 | disposition home or self-care (01) ==
LOC: E/R 14:38
DX: M06.1 Adult-onset Still's disease (principal); R00.0 Tachycardia, unspecified; R52 Pain, unspecified; R06.02 Shortness of breath
CPT/HCPCS: 36415; 71045; 80053; 81001; 83605; 83690; 84484; 85025; 85610; 85730; 87040; 87086; 93005; 99285-25

== ENCOUNTER 2019-01-14 10:15 | Inpatient (IN) | payer OTHER ==
[2019-01-14] MEDS: morphine 4 MG/ML VIAL IV (10:57)
[2019-01-14 11:35] LABS: ADD MAN DIFF? NO
[2019-01-14 11:38] LABS: WHITE BLOOD COUNT 14.9 10^3/ul (4.8-10.8)
[2019-01-14 11:38] LABS: BASOPHILS % 0.1 % (0.0-2.0); EOSINOPHILS # 0.7 10^3/ul (0.0-0.5); EOSINOPHILS % 4.6 % (0.0-7.0); HEMATOCRIT 35.2 % (37.0-47.0); HEMOGLOBIN 11.6 g/dl (12.0-16.0); LYMPHOCYTES # 1.1 10^3/ul (0.8-2.9); MEAN CORPUSCULAR HEMOGLOBIN 29.5 pg (29.0-33.0); MEAN CORPUSCULAR VOLUME 89.6 fl (82.0-101.0); MEAN PLATELET VOLUME 9.3 fl (7.4-10.4); MONOCYTE # 0.6 10^3/ul (0.3-0.9); MONOCYTES % 3.7 % (0.0-11.0); NEUTROPHIL # 12.5 10^3/ul (1.6-7.5); NEUTROPHILS % 84.2 % (39.0-77.0); PLATELET COUNT 411 10^3/UL (140-415); RED BLOOD COUNT 3.93 10^6/ul (4.20-5.40); RED CELL DISTRIBUTION WIDTH 15.3 % (11.5-14.5)
[2019-01-14 11:59] LABS: INR 1.04; PROTIME 13.7 Sec (11.9-14.9); PT RATIO 1.1
[2019-01-14 12:00] LABS: PARTIAL THROMBOPLASTIN TIME 41.1 Sec (23.0-35.0)
[2019-01-14] MEDS: SODIUM CHLORIDE 0.9% 1L BAG IV* (12:02)
[2019-01-14] MEDS: ONDANSETRON 4 MG INJ IV (12:02)
[2019-01-14 12:06] LABS: ALANINE AMINOTRANSFERASE 10 IU/L (13-69); ALBUMIN 3.6 g/dl (3.3-4.9); ALKALINE PHOSPHATASE 86 IU/L (42-121); ANION GAP 12 (5-13); ASPARTATE AMINO TRANSFERASE 21 IU/L (15-46); BILIRUBIN,INDIRECT 0.2 mg/dl (0-1.1); BILIRUBIN,TOTAL 0.2 mg/dl (0.2-1.3); BLOOD UREA NITROGEN 10 mg/dl (7-20); CALCIUM 9.4 mg/dl (8.4-10.2); CARBON DIOXIDE 26 mmol/L (21-31); CHLORIDE 105 mmol/L (97-110); CREATININE 0.61 mg/dl (0.44-1.00); Estimated GFR > 60 mL/min (>60); GLUCOSE 94 mg/dl (70-220); LIPASE 43 U/L (23-300); POTASSIUM 3.9 mmol/L (3.5-5.1); SODIUM 143 mmol/L (135-144); TOTAL PROTEIN 7.2 g/dl (6.1-8.1)
[2019-01-14 12:18] LABS: TROPONIN-I < 0.012 ng/ml (0.000-0.120)
[2019-01-14] MEDS ORDERED: ACETAMINOPHEN 325 MG TAB PO (14:00)
[2019-01-14] MEDS ORDERED: ONDANSETRON 4 MG INJ IV (14:00)
[2019-01-14] MEDS: CEFEPIME 1GM/50 ML (PMX) 50 ML IVPB ×2 (14:12→22:46)
[2019-01-14 14:15] LABS: ADD UMIC YES; UR ASCORBIC ACID NEGATIVE (NEGATIVE); UR BACTERIA FEW /HPF (NONE SEEN); UR BILIRUBIN (Dip) NEGATIVE (NEGATIVE); UR BLOOD (Dip) 2+ mg/dL (NEGATIVE); UR CLARITY CLEAR (CLEAR); UR COLOR COLORLESS (YELLOW); UR GLUCOSE (Dip) NEGATIVE (NEGATIVE); UR KETONES (Dip) TRACE mg/dL (NEGATIVE); UR LEUKOCYTE ESTERASE (Dip) TRACE Leu/ul (NEGATIVE); UR NITRITE (Dip) NEGATIVE (NEGATIVE); UR RBC 1 /HPF (0-5); UR SPECIFIC GRAVITY (Dip) 1.003 (1.003-1.030); UR TOTAL PROTEIN (Dip) NEGATIVE (NEGATIVE); UR UROBILINOGEN (Dip) NEGATIVE (NEGATIVE); UR WBC 1 /HPF (0-5)
[2019-01-14] MEDS: VANCOMYCIN 1 GM (PMX) 250 ML IVPB (15:32)
[2019-01-14] MEDS: ACETAMINOPHEN 325 MG TAB PO ×2 (17:10→22:46)
[2019-01-14 20:46] LABS: LACTIC ACID 0.8 mmol/L (0.5-2.0)
[2019-01-14] MEDS ORDERED: BISACODYL 10 MG SUPP PR (21:00)
[2019-01-14] MEDS ORDERED: DOCUSATE SODIUM 100 MG CAP PO (21:00)
[2019-01-14] MEDS ORDERED: BISACODYL (EC) 5 MG TAB PO (21:00)
[2019-01-14] MEDS ORDERED: NA PHOSPHATE/BIPHOS 133 ML ENEMA PR (21:00)
[2019-01-14] MEDS ORDERED: ACETAMINOPHEN 650 MG SUPP PR (21:00)
[2019-01-14] MEDS ORDERED: NACL 0.9% 3 ML SYG IV (21:00)
[2019-01-14] MEDS ORDERED: MAGNESIUM HYDROXIDE 30ML CUP PO (21:00)
[2019-01-15] MEDS ORDERED: MIDODRINE 5 MG TAB (05:43)
[2019-01-15] MEDS: PANTOPRAZOLE (EC) 40 MG TAB PO (05:56)
[2019-01-15] MEDS: MIDODRINE 5 MG TAB PO ×2 (05:57→20:50)
[2019-01-15 06:20] LABS: ADD MAN DIFF? NO
[2019-01-15 06:25] LABS: WHITE BLOOD COUNT 11.7 10^3/ul (4.8-10.8)
[2019-01-15 06:25] LABS: BASOPHILS % 0.1 % (0.0-2.0); EOSINOPHILS # 0.7 10^3/ul (0.0-0.5); EOSINOPHILS % 5.8 % (0.0-7.0); HEMATOCRIT 32.7 % (37.0-47.0); HEMOGLOBIN 10.5 g/dl (12.0-16.0); LYMPHOCYTES # 0.9 10^3/ul (0.8-2.9); LYMPHOCYTES % 7.6 % (15.0-51.0); MEAN CORPUSCULAR HEMOGLOBIN 29.1 pg (29.0-33.0); MEAN CORPUSCULAR HGB CONC 32.1 g/dl (32.0-37.0); MEAN CORPUSCULAR VOLUME 90.6 fl (82.0-101.0); MEAN PLATELET VOLUME 9.6 fl (7.4-10.4); MONOCYTE # 0.3 10^3/ul (0.3-0.9); MONOCYTES % 2.5 % (0.0-11.0); NEUTROPHIL # 9.7 10^3/ul (1.6-7.5); NEUTROPHILS % 83.5 % (39.0-77.0); PLATELET COUNT 422 10^3/UL (140-415); RED BLOOD COUNT 3.61 10^6/ul (4.20-5.40); RED CELL DISTRIBUTION WIDTH 15.7 % (11.5-14.5)
[2019-01-15 06:44] LABS: ALANINE AMINOTRANSFERASE 14 IU/L (13-69); ALBUMIN 2.9 g/dl (3.3-4.9); ALKALINE PHOSPHATASE 75 IU/L (42-121); ANION GAP 7 (5-13); ASPARTATE AMINO TRANSFERASE 22 IU/L (15-46); BILIRUBIN,INDIRECT 0.1 mg/dl (0-1.1); BILIRUBIN,TOTAL 0.1 mg/dl (0.2-1.3); BLOOD UREA NITROGEN 8 mg/dl (7-20); CALCIUM 8.6 mg/dl (8.4-10.2); CARBON DIOXIDE 25 mmol/L (21-31); CHLORIDE 109 mmol/L (97-110); CREATININE 0.58 mg/dl (0.44-1.00); Estimated GFR > 60 mL/min (>60); GLUCOSE 90 mg/dl (70-220); POTASSIUM 3.9 mmol/L (3.5-5.1); SODIUM 141 mmol/L (135-144); TOTAL PROTEIN 6.1 g/dl (6.1-8.1)
[2019-01-15] MEDS: ALBUTEROL/IPRATROPIUM (NEB) 3 ML AMP HHN ×3 (08:00→20:00)
[2019-01-15] MEDS: ENOXAPARIN 40 MG/0.4 ML SYG SC (09:17)
[2019-01-15] MEDS: HYDROXYCHLOROQUINE 200 MG TAB PO (09:18)
[2019-01-15] MEDS: predniSONE 2.5 MG TAB PO (09:18)
[2019-01-15] MEDS: CALCIUM/VITAMIN D (500/200) TAB PO (09:18)
[2019-01-15] MEDS: CEFEPIME 1GM/50 ML (PMX) 50 ML IVPB ×2 (09:18→20:24)
[2019-01-15] MEDS: FOLIC ACID 1 MG TAB PO (09:18)
[2019-01-15] MEDS: DEXTROSE 5%-0.9% NACL 1,000 ML IV (15:06)
[2019-01-16] MEDS: PANTOPRAZOLE (EC) 40 MG TAB PO (06:24)
[2019-01-16 06:27] LABS: ADD MAN DIFF? NO
[2019-01-16 06:42] LABS: BASOPHILS % 0.2 % (0.0-2.0); EOSINOPHILS # 1.1 10^3/ul (0.0-0.5); EOSINOPHILS % 9.9 % (0.0-7.0); HEMATOCRIT 29.4 % (37.0-47.0); HEMOGLOBIN 9.7 g/dl (12.0-16.0); LYMPHOCYTES # 1.4 10^3/ul (0.8-2.9); LYMPHOCYTES % 13.1 % (15.0-51.0); MEAN CORPUSCULAR HEMOGLOBIN 29.5 pg (29.0-33.0); MEAN CORPUSCULAR VOLUME 89.4 fl (82.0-101.0); MEAN PLATELET VOLUME 9.5 fl (7.4-10.4); MONOCYTE # 0.5 10^3/ul (0.3-0.9); MONOCYTES % 4.9 % (0.0-11.0); NEUTROPHIL # 7.8 10^3/ul (1.6-7.5); NEUTROPHILS % 71.4 % (39.0-77.0); PLATELET COUNT 405 10^3/UL (140-415); RED BLOOD COUNT 3.29 10^6/ul (4.20-5.40); RED CELL DISTRIBUTION WIDTH 15.7 % (11.5-14.5)
[2019-01-16 07:21] LABS: ANION GAP 6 (5-13); BLOOD UREA NITROGEN 7 mg/dl (7-20); CALCIUM 8.6 mg/dl (8.4-10.2); CARBON DIOXIDE 27 mmol/L (21-31); CHLORIDE 111 mmol/L (97-110); CREATININE 0.52 mg/dl (0.44-1.00); Estimated GFR > 60 mL/min (>60); GLUCOSE 93 mg/dl (70-220); POTASSIUM 3.5 mmol/L (3.5-5.1); SODIUM 144 mmol/L (135-144)
[2019-01-16] MEDS: ALBUTEROL/IPRATROPIUM (NEB) 3 ML AMP HHN (08:00)
[2019-01-16] MEDS: CEFEPIME 1GM/50 ML (PMX) 50 ML IVPB (08:56)
[2019-01-16] MEDS: CALCIUM/VITAMIN D (500/200) TAB PO (08:57)
[2019-01-16] MEDS: ENOXAPARIN 40 MG/0.4 ML SYG SC (08:57)
[2019-01-16] MEDS: MIDODRINE 5 MG TAB PO (08:58)
[2019-01-16] MEDS: predniSONE 2.5 MG TAB PO (08:58)
[2019-01-16] MEDS: HYDROXYCHLOROQUINE 200 MG TAB PO (08:58)
[2019-01-16] MEDS: FOLIC ACID 1 MG TAB PO (08:58)
[2019-01-16] MEDS: DEXTROSE 5%-0.9% NACL 1,000 ML IV (11:00)
== END 2019-01-16 16:05 | disposition home or self-care (01) | DRG 195 ==
LOC: E/R 10:15 → PP2 13:39
DX: J18.9 Pneumonia, unspecified organism (principal); K80.20 Calculus of gallbladder without cholecystitis without obstruction; M08.20 Juvenile rheumatoid arthritis with systemic onset, unspecified site; T38.0X5A Adverse effect of glucocorticoids and synthetic analogues, initial encounter; D72.829 Elevated white blood cell count, unspecified; D64.9 Anemia, unspecified; R91.8 Other nonspecific abnormal finding of lung field
CPT/HCPCS: 36415; 71045; 76705; 80048; 80053; 81001; 83605; 83690; 84484; 85025; 85610; 85730; 87040-91; 87086; 93005; 96374; 99285-25